=== PATIENT | male | born 1990 | race Two or more races ===

== ENCOUNTER 2016-06-11 18:02 | Emergency (ER) | payer OTHER ==
[~2016-06-11] VITALS: Ht 157.5 cm; Wt 65.8 kg
[~2016-06-11 18:02] MED LIST: HUMULOG; INSLANTI
[2016-06-11 23:00] VITALS: BP 94/53
[2016-06-11] MEDS ORDERED: KETOROLAC TROMETH 60MG/2ML VIAL IM ONE ×2 (23:00→23:15)
== END 2016-06-11 22:58 | disposition home or self-care (01) ==
LOC: ER 18:10
DX: M76.892 Other specified enthesopathies of left lower limb, excluding foot (principal); E11.42 Type 2 diabetes mellitus with diabetic polyneuropathy; G62.9 Polyneuropathy, unspecified; F17.210 Nicotine dependence, cigarettes, uncomplicated
CPT/HCPCS: 82962; 93971; 96372; 99284; J1885

== ENCOUNTER 2016-07-10 11:32 | Inpatient (IN) | payer OTHER ==
[~2016-07-10] VITALS: Ht 160 cm; Wt 60.9 kg
[~2016-07-10 11:32] MED LIST changes: +ACYC200C PO; +ARTISOL13 EACHEYE; +GAB100C PO; +IBU600T PO
[2016-07-10 12:24] LABS: Basophils # (auto) 0.1 uL; Basophils % (auto) 0.9 % (0.0-2.0); Eosinophils # (auto) 0.3 uL; Eosinophils % (auto) 4.1 % (0.0-7.0); Hemoglobin 11.2 g/dL (13.5-17.5); Lymphocytes # (auto) 1.2 uL; Lymphocytes % (auto) 15.6 % (10.0-50.0); Mean Corpuscular Hemoglobin 28.3 pg (28.0-32.0); Mean Corpuscular Hgb Conc. 33.9 g/dL (32.0-36.0); Mean Corpuscular Volume 83.6 fL (80.0-100.0); Mean Platelet Volume 8.4 fL (7.4-10.4); Monocytes # (auto) 0.5 uL; Monocytes % (auto) 7.2 % (0.0-12.0); Neutrophils # (auto) 5.4 uL; Neutrophils % (auto) 72.2 % (37.0-80.0); Platelet Count (auto) 281 10^3/uL (140-450); Red Cell Distribution Width 13.3 % (11.6-16.0); White Blood Cell 7.5 10^3/uL (4.4-10.8)
[2016-07-10 12:58] LABS: Albumin 3.5 g/dL (3.4-5.0); BUN/Creatinine Ratio 13.5; Bilirubin, Total 0.2 mg/dL (0.2-1.0); Calcium 8.8 mg/dL (8.5-10.1); Potassium 3.3 mmol/L (3.5-5.1); Total Protein 7.6 g/dL (6.4-8.2)
[2016-07-10 13:36] LABS: Urine RBC None Seen /hpf (0 - 3)
[2016-07-10 13:42] LABS: Amylase 19 U/L (25-115)
[2016-07-10] MEDS ORDERED: POTASSIUM CHL 10% (20 MEQ/15ML) ORAL SOLN PO ONE (14:00)
[2016-07-10 14:12] LABS: Urine Bilirubin Negative (Negative); Urine Blood Negative /uL (Negative); Urine Color Yellow (Yellow); Urine Ketone Negative (Negative); Urine Nitrite Negative (Negative); Urine Squamous Epithelial Cell FEW /hpf (<5); Urine Urobilinogen Normal (Negative); Urine pH 5.5 (5.0-8.0)
[2016-07-10 14:16] LABS: Urine Glucose 4+ mg/dL (Normal)
[2016-07-10] MEDS ORDERED: ONDANSETRON HCL 4 MG/2 ML VIAL IV PRN (14:30)
[2016-07-10] MEDS ORDERED: ARTIFICIAL TEARS 15ml EACHEYE PRN (14:30)
[2016-07-10] MEDS ORDERED: ACETAMINOPHEN 325 MG TAB PO PRN (14:30)
[2016-07-10] MEDS ORDERED: DEXTROSE (50%) 50ML SYRG IV PRN (14:30)
[2016-07-10] MEDS ORDERED: NITROGLYCERIN 0.4 MG SL TAB SL PRN (14:30)
[2016-07-10] MEDS ORDERED: MORPHINE SULF INJ 2 MG/ML SYRINGE 1ML IV PRN ×2 (14:30)
[2016-07-10] MEDS ORDERED: HYDROcodone-ACET 5/325MG TAB PO PRN (14:30)
[2016-07-10] MEDS ORDERED: TEMAZEPAM 15 MG CAP PO PRN (14:30)
[2016-07-10] MEDS ORDERED: ACYCLOVIR 400 MG TAB PO ONE (14:45)
[2016-07-10] MEDS ORDERED: GABAPENTIN 100 MG CAP PO ONE (14:45)
[2016-07-10] MEDS ORDERED: MULTIPLE VITAMIN TAB PO ONE (14:45)
[2016-07-10] MEDS ORDERED: IBUPROFEN 600 MG TAB PO ONE (14:45)
[2016-07-10] MEDS ORDERED: cefTRIAXone 1GM/50ML D5W 50 ML IV ONE (15:00)
[2016-07-10 15:21] LABS: INR 1.02 (0.9-1.15); Prothrombin Time 10.5 sec (9.37-12.3)
[2016-07-10 16:35] VITALS: BP 140/90
[2016-07-10] MEDS: InsuLIN REG 1unit/0.01ml Soln (100units/ml) SC SCH ×2 (17:00→22:15)
[2016-07-10] MEDS ORDERED: INFLUENZA QUAD 2016-2017 0.5 ML SYRG IM ONE (17:45)
[2016-07-10] MEDS ORDERED: PNEUMOCOCCAL VACC POLYS 25 MCG/0.5 ML VIAL IM ONE (17:45)
[2016-07-10] MEDS: ACCU-CHEK COMFORT CURVE STRIP VI SCH ×2 (17:47→22:15)
[2016-07-10 21:30] VITALS: BP 104/69
[2016-07-10] MEDS: IBUPROFEN 600 MG TAB PO SCH (22:13)
[2016-07-10] MEDS: SODIUM CHLOR 0.9% PF (SALINE LOCK) 10ML VIAL IV SCH (22:13)
[2016-07-10] MEDS: ACYCLOVIR 400 MG TAB PO SCH (22:14)
[2016-07-10] MEDS: GABAPENTIN 100 MG CAP PO SCH (22:14)
[2016-07-10] MEDS: INSULIN DETEMIR(LEVEMIR) 1unit/0.01ml Soln (100units/ml) SC SCH (22:15)
[2016-07-11] VITALS (7 sets, daily range): BP systolic 108–121; BP diastolic 68–91
[2016-07-11 06:09] LABS: Basophils # (auto) 0.1 uL; Basophils % (auto) 0.8 % (0.0-2.0); Eosinophils # (auto) 0.6 uL; Eosinophils % (auto) 6.8 % (0.0-7.0); Hematocrit 33.8 % (41.0-53.0); Hemoglobin 11.3 g/dL (13.5-17.5); Lymphocytes # (auto) 2.1 uL; Lymphocytes % (auto) 26.6 % (10.0-50.0); Mean Corpuscular Hemoglobin 28.4 pg (28.0-32.0); Mean Corpuscular Hgb Conc. 33.5 g/dL (32.0-36.0); Mean Corpuscular Volume 84.8 fL (80.0-100.0); Mean Platelet Volume 8.8 fL (7.4-10.4); Monocytes # (auto) 0.7 uL; Monocytes % (auto) 8.6 % (0.0-12.0); Neutrophils # (auto) 4.6 uL; Neutrophils % (auto) 57.2 % (37.0-80.0); Platelet Count (auto) 295 10^3/uL (140-450); Red Cell Distribution Width 13.6 % (11.6-16.0); White Blood Cell 8.1 10^3/uL (4.4-10.8)
[2016-07-11] MEDS: SODIUM CHLOR 0.9% PF (SALINE LOCK) 10ML VIAL IV SCH ×3 (06:29→22:27)
[2016-07-11 06:31] LABS: Albumin 3.1 g/dL (3.4-5.0); Calcium 8.4 mg/dL (8.5-10.1); Potassium 4.1 mmol/L (3.5-5.1)
[2016-07-11 06:33] LABS: BUN/Creatinine Ratio 14.3
[2016-07-11 06:36] LABS: Bilirubin, Total 0.3 mg/dL (0.2-1.0); Total Protein 7.1 g/dL (6.4-8.2)
[2016-07-11] MEDS: ACCU-CHEK COMFORT CURVE STRIP VI SCH ×4 (06:36→22:28)
[2016-07-11] MEDS: InsuLIN REG 1unit/0.01ml Soln (100units/ml) SC SCH ×4 (06:38→22:31)
[2016-07-11] MEDS ORDERED: cefTRIAXone 1GM/50ML D5W 50 ML IV SCH (09:00)
[2016-07-11] MEDS: MULTIPLE VITAMIN TAB PO SCH (09:23)
[2016-07-11] MEDS: IBUPROFEN 600 MG TAB PO SCH ×2 (09:24→22:28)
[2016-07-11] MEDS: GABAPENTIN 100 MG CAP PO SCH ×2 (09:24→22:28)
[2016-07-11] MEDS: ACYCLOVIR 400 MG TAB PO SCH ×2 (09:24→22:28)
[2016-07-11] MEDS: INSULIN DETEMIR(LEVEMIR) 1unit/0.01ml Soln (100units/ml) SC SCH (22:32)
[2016-07-12] MEDS: SODIUM CHLOR 0.9% PF (SALINE LOCK) 10ML VIAL IV SCH (05:23)
[2016-07-12] MEDS: ACCU-CHEK COMFORT CURVE STRIP VI SCH ×2 (05:24→12:16)
[2016-07-12] MEDS: InsuLIN REG 1unit/0.01ml Soln (100units/ml) SC SCH ×2 (05:24→12:18)
[2016-07-12 05:42] VITALS: BP 119/70
[2016-07-12 09:00] VITALS: BP 112/88
[2016-07-12] MEDS ORDERED: traMADol HCL 50 MG TAB PO PRN (09:00)
[2016-07-12] MEDS ORDERED: TRAM50TA2 PO ×2 (09:32)
[2016-07-12] MEDS: ACYCLOVIR 400 MG TAB PO SCH (09:38)
[2016-07-12] MEDS: MULTIPLE VITAMIN TAB PO SCH (09:38)
[2016-07-12] MEDS: GABAPENTIN 100 MG CAP PO SCH (09:39)
[2016-07-12 12:46] VITALS: BP 138/93
== END 2016-07-12 14:58 | disposition home or self-care (01) | DRG 460 ==
LOC: EDUNIT# 11:32 → ER 11:35 → TELE 11:36 → TELE-WESTW 16:17 → WEST WING 07-11 23:02
PROVIDERS: ADMIT Internal Medicine; ATTEND Internal Medicine
DX: N17.9 Acute kidney failure, unspecified (principal); G92 Toxic encephalopathy; E10.21 Type 1 diabetes mellitus with diabetic nephropathy; E10.40 Type 1 diabetes mellitus with diabetic neuropathy, unspecified; K86.1 Other chronic pancreatitis; N13.9 Obstructive and reflux uropathy, unspecified; E10.649 Type 1 diabetes mellitus with hypoglycemia without coma; N13.30 Unspecified hydronephrosis; K76.0 Fatty (change of) liver, not elsewhere classified; M19.90 Unspecified osteoarthritis, unspecified site; D63.8 Anemia in other chronic diseases classified elsewhere; N18.2 Chronic kidney disease, stage 2 (mild); E87.6 Hypokalemia; M25.562 Pain in left knee; E10.22 Type 1 diabetes mellitus with diabetic chronic kidney disease; F17.210 Nicotine dependence, cigarettes, uncomplicated; G89.29 Other chronic pain; Z79.4 Long term (current) use of insulin; Z81.8 Family history of other mental and behavioral disorders; Z82.3 Family history of stroke; Z82.49 Family history of ischemic heart disease and other diseases of the circulatory system; Z82.5 Family history of asthma and other chronic lower respiratory diseases; Z83.3 Family history of diabetes mellitus; Z23 Encounter for immunization
CPT/HCPCS: 36415; 51702; 70450; 74176; 76775; 80053; 81001; 82150; 82962; 83036; 83690; 85025; 85610; 87081; 87086; 87493; G0434; J0696; J1815

== ENCOUNTER 2016-09-29 22:37 | Emergency (ER) | payer OTHER ==
[~2016-09-29] VITALS: Ht 157.5 cm; Wt 61.2 kg
[~2016-09-29 22:37] MED LIST changes: -IBU600T PO; +TRAM50TA2 PO
[2016-09-29 23:47] VITALS: BP 99/62
[2016-09-30] MEDS ORDERED: KETOROLAC TROMETH 30 MG/ML 1ML VIAL IM ONE
== END 2016-09-30 00:48 | disposition home or self-care (01) ==
LOC: ER 22:40
DX: K45.8 Other specified abdominal hernia without obstruction or gangrene (principal); F17.210 Nicotine dependence, cigarettes, uncomplicated; E11.9 Type 2 diabetes mellitus without complications
CPT/HCPCS: 82962; 96372; 99283; J1885

== ENCOUNTER 2017-12-17 16:25 | Inpatient (IN) | payer OTHER ==
[~2017-12-17] VITALS: Ht 157.5 cm; Wt 56.7 kg
[~2017-12-17 16:25] MED LIST changes: +ACYC1CAP23 PO; -ACYC200C PO; -INSLANTI; +INSLANTI SC
[2017-12-17] MEDS ORDERED: cefTRIAXone W LIDOCAINE 1 GM IM IM ONE (19:15)
[2017-12-17] MEDS ORDERED: SODIUM CHLORIDE 0.9% 500 ML IV ONE (19:33)
[2017-12-17] MEDS ORDERED: CLINDAMYCIN 600MG IV 50 ML IV ONE (19:45)
[2017-12-17 20:38] LABS: Basophils # (auto) 0.1 uL; Basophils % (auto) 0.8 % (0.0-2.0); Eosinophils # (auto) 0.2 uL; Eosinophils % (auto) 1.8 % (0.0-7.0); Hematocrit 41.8 % (41.0-53.0); Hemoglobin 14.1 g/dL (13.5-17.5); Lymphocytes # (auto) 2.2 uL; Lymphocytes % (auto) 24.8 % (10.0-50.0); Mean Corpuscular Hgb Conc. 33.8 g/dL (32.0-36.0); Mean Corpuscular Volume 85.7 fL (80.0-100.0); Monocytes # (auto) 0.8 uL; Monocytes % (auto) 8.7 % (0.0-12.0); Neutrophils # (auto) 5.7 uL; Neutrophils % (auto) 63.9 % (37.0-80.0); Nucleated Red Blood Cells % 0.1 %; Platelet Count (auto) 291 10^3/uL (140-450); Red Blood Cells 4.88 10^6/uL (4.5-5.90); Red Cell Distribution Width 13.3 % (11.8-14.3); White Blood Cell 8.9 10^3/uL (4.4-10.8)
[2017-12-17 20:39] LABS: Albumin 3.8 g/dL (3.4-5.0); BUN/Creatinine Ratio 12.3; Calcium 8.8 mg/dL (8.5-10.1); Magnesium 2.3 mg/dL (1.6-2.6); Potassium 3.4 mmol/L (3.5-5.1)
[2017-12-17 20:42] LABS: Bilirubin, Total 0.7 mg/dL (0.2-1.0); Total Protein 8.3 g/dL (6.4-8.2)
[2017-12-17] MEDS ORDERED: LIDOCAINE 1% (LOCAL ANESTH.) PF 5ml SDV IJ ONE (21:30)
[2017-12-17] MEDS ORDERED: DEXTROSE (50%) 50ML SYRG IV PRN (23:00)
[2017-12-17] MEDS ORDERED: MORPHINE SULF INJ 2 MG/ML SYRINGE 1ML IV PRN (23:00)
[2017-12-17] MEDS ORDERED: POTASSIUM EFFERVESENT TAB 25 MEQ PO ONE (23:00)
[2017-12-17] MEDS ORDERED: ONDANSETRON HCL 4 MG/2 ML VIAL IV PRN (23:00)
[2017-12-17] MEDS ORDERED: HYDROcodone-ACET 5/325MG TAB PO PRN (23:00)
[2017-12-17 23:45] VITALS: BP 115/79
[2017-12-18 05:00] VITALS: BP 149/78
[2017-12-18] MEDS ORDERED: CLINDAMYCIN 600MG IV 50 ML IV SCH (06:00)
[2017-12-18 06:14] LABS: Urine Bacteria NONE SEEN /hpf (None Seen); Urine Blood Negative /uL (Negative); Urine Specific Gravity 1.022 (1.001-1.035); Urine WBC <1 /hpf (0 - 3)
[2017-12-18] MEDS: ACCU-CHEK COMFORT CURVE STRIP VI SCH ×4 (06:49→22:58)
[2017-12-18] MEDS: InsuLIN REG 1unit/0.01ml Soln (100units/ml) SC SCH ×3 (06:49→17:41)
[2017-12-18 07:12] LABS: Basophils # (auto) 0 uL; Basophils % (auto) 0.8 % (0.0-2.0); Eosinophils # (auto) 0.1 uL; Eosinophils % (auto) 2.8 % (0.0-7.0); Hematocrit 37.7 % (41.0-53.0); Hemoglobin 12.6 g/dL (13.5-17.5); Lymphocytes # (auto) 1.7 uL; Lymphocytes % (auto) 37.1 % (10.0-50.0); Mean Corpuscular Hemoglobin 28.8 pg (28.0-32.0); Mean Corpuscular Hgb Conc. 33.4 g/dL (32.0-36.0); Mean Corpuscular Volume 86.2 fL (80.0-100.0); Monocytes # (auto) 0.4 uL; Monocytes % (auto) 9.6 % (0.0-12.0); Neutrophils # (auto) 2.3 uL; Neutrophils % (auto) 49.7 % (37.0-80.0); Nucleated Red Blood Cells % 0.1 %; Platelet Count (auto) 229 10^3/uL (140-450); Red Blood Cells 4.37 10^6/uL (4.5-5.90); Red Cell Distribution Width 13.6 % (11.8-14.3); White Blood Cell 4.5 10^3/uL (4.4-10.8)
[2017-12-18 07:18] LABS: INR 0.98 (0.9-1.15); Partial Thromboplastin Time 25.4 sec (23.78-33.04); Prothrombin Time 10.5 sec (9.27-12.13)
[2017-12-18 07:27] LABS: Calcium 8.3 mg/dL (8.5-10.1); Potassium 3.7 mmol/L (3.5-5.1)
[2017-12-18 07:29] LABS: BUN/Creatinine Ratio 9.6
[2017-12-18 08:00] VITALS: BP 120/87
[2017-12-18 08:25] VITALS: BP 120/87
[2017-12-18] MEDS ORDERED: cefTRIAXone 1GM/10ml IVPUSH 10 ML IV SCH (09:00)
[2017-12-18] MEDS ORDERED: VANCOMYCIN PER PHARMACY 0 MG IV SCH (11:15)
[2017-12-18 12:55] VITALS: BP 143/111
[2017-12-18] MEDS: VANCOMYCIN 750 MG in D5W 5% 250 ML IV SCH (13:23)
[2017-12-18 16:35] VITALS: BP 144/102
[2017-12-18 22:00] VITALS: BP 101/61
[2017-12-18] MEDS ORDERED: INSULIN LANTUS (GLARGINE) 1 /0.01ml (100units/ml) SC SCH (22:00)
[2017-12-18] MEDS ORDERED: InsuLIN REG 1unit/0.01ml Soln (100units/ml) SC SCH (22:00)
[2017-12-19] MEDS: VANCOMYCIN 750 MG in D5W 5% 250 ML IV SCH (03:42)
[2017-12-19 05:37] VITALS: BP 106/72
[2017-12-19 05:52] LABS: Albumin 3.2 g/dL (3.4-5.0); Calcium 8.7 mg/dL (8.5-10.1); Potassium 3.8 mmol/L (3.5-5.1)
[2017-12-19 05:55] LABS: BUN/Creatinine Ratio 11.9; Bilirubin, Total 0.4 mg/dL (0.2-1.0); Total Protein 7.4 g/dL (6.4-8.2)
[2017-12-19] MEDS: ACCU-CHEK COMFORT CURVE STRIP VI SCH ×2 (05:58→12:15)
[2017-12-19] MEDS: InsuLIN REG 1unit/0.01ml Soln (100units/ml) SC SCH ×2 (05:59→12:30)
[2017-12-19] MEDS ORDERED: VANCOMYCIN 750 MG in D5W 5% 250 ML IV SCH (12:00)
[2017-12-19 17:06] VITALS: BP 140/97
== END 2017-12-19 19:00 | disposition home or self-care (01) | DRG 383 ==
LOC: ER 16:25 → OVERFLOW 16:26 → WEST WING 23:39
PROVIDERS: ADMIT Internal Medicine; ATTEND Internal Medicine Pulmonary Disease
PROC: 0X9J0ZZ Drainage of Right Hand, Open Approach (ICD-10-PCS; principal; 2017-12-17)
DX: L03.113 Cellulitis of right upper limb (principal); E10.65 Type 1 diabetes mellitus with hyperglycemia; Z79.4 Long term (current) use of insulin; Z83.3 Family history of diabetes mellitus; H54.7 Unspecified visual loss; Z81.8 Family history of other mental and behavioral disorders; Z82.3 Family history of stroke; Z82.49 Family history of ischemic heart disease and other diseases of the circulatory system; Z82.5 Family history of asthma and other chronic lower respiratory diseases; Z81.1 Family history of alcohol abuse and dependence; Z81.3 Family history of other psychoactive substance abuse and dependence; H10.401 Unspecified chronic conjunctivitis, right eye
CPT/HCPCS: 10060; 36415; 73130; 80048; 80053; 80202; 81001; 82962; 83036; 83735; 85025; 85610; 85652; 85730; 86141; 94761; 96365; 96366; J0696; J1815; J3490; J7060

== ENCOUNTER 2019-01-12 14:40 | Emergency (ER) | payer OTHER ==
[~2019-01-12] VITALS: Ht 157.5 cm; Wt 63.5 kg
[~2019-01-12 14:40] MED LIST changes: -TRAM50TA2 PO
[2019-01-12 16:27] VITALS: BP 130/85
[2019-01-12] MEDS ORDERED: LIDOCAINE 1% HCL (LOCAL ANESTH.) INJ 20ML MDV IJ ONE (17:00)
[2019-01-12] MEDS ORDERED: NEOMYCIN-BACITRACIN-POLYM UNITDOSE PKG TOP OINT TOP ONE (17:00)
[2019-01-12] MEDS ORDERED: cefTRIAXone SOD 1,000 MG VL IM ONE (17:45)
== END 2019-01-12 18:20 | disposition home or self-care (01) ==
LOC: ER 14:40
DX: S61.215A Laceration without foreign body of left ring finger without damage to nail, initial encounter (principal); E11.9 Type 2 diabetes mellitus without complications; W45.8XXA Other foreign body or object entering through skin, initial encounter; Y93.89 Activity, other specified; Y92.69 Other specified industrial and construction area as the place of occurrence of the external cause; Y99.8 Other external cause status
CPT/HCPCS: 12001; 96372; 99283; J0696; J2001

== ENCOUNTER 2019-01-19 10:41 | Emergency (ER) | payer OTHER ==
[~2019-01-19] VITALS: Ht 157.5 cm; Wt 68.0 kg
[2019-01-19 10:51] VITALS: BP 90/60
== END 2019-01-19 11:49 | disposition home or self-care (01) ==
LOC: ER 10:46
DX: S61.215D Laceration without foreign body of left ring finger without damage to nail, subsequent encounter (principal); E11.9 Type 2 diabetes mellitus without complications; Z79.899 Other long term (current) drug therapy; Z79.4 Long term (current) use of insulin; X58.XXXD Exposure to other specified factors, subsequent encounter

== ENCOUNTER 2020-05-09 17:23 | Emergency (ER) | payer MEDICARE, MEDICAID ==
[~2020-05-09] VITALS: Ht 160 cm; Wt 65.8 kg
[2020-05-09 18:12] VITALS: BP 136/85
== END 2020-05-10 01:40 | disposition left against medical advice (07) ==
LOC: ER 17:23
DX: U07.1 COVID-19 (principal); J18.9 Pneumonia, unspecified organism; R10.9 Unspecified abdominal pain
CPT/HCPCS: 74176

== ENCOUNTER 2023-07-03 21:42 | Emergency (ER) | payer MEDICAID, MEDICARE ==
[~2023-07-03] VITALS: Ht 172.7 cm; Wt 68.2 kg
[~2023-07-03 21:42] MED LIST changes: -ACYC1CAP23 PO; +ACYC200C22 PO
[2023-07-03 23:05] VITALS: PULSE 102; RESP 18; O2SAT 94
[2023-07-04] MEDS: MORPHINE SULFATE 4 MG/ML SYR/VIAL IV ONE (00:02)
[2023-07-04 02:02] VITALS: BP 127/71; PULSE 86; RESP 18; TEMP 98; O2SAT 97
[2023-07-04] MEDS ORDERED: IOHEXOL 350 MG/ML 100ML IJ ONE (05:59)
== END 2023-07-04 02:14 | disposition home or self-care (01) ==
LOC: EDBD 21:42 → ER 21:42
DX: S00.81XA Abrasion of other part of head, initial encounter (principal); M79.18 Myalgia, other site; R07.89 Other chest pain; M54.2 Cervicalgia; E11.9 Type 2 diabetes mellitus without complications; V43.62XA Car passenger injured in collision with other type car in traffic accident, initial encounter; Y93.89 Activity, other specified; Y92.89 Other specified places as the place of occurrence of the external cause; Y99.8 Other external cause status
CPT/HCPCS: 70450; 71260; 72040; 74177; 96374; 99285; J2270; Q9967

== ENCOUNTER 2024-12-29 19:42 | Inpatient (IN) | payer MEDICARE ==
[~2024-12-29] VITALS: Ht 160 cm; Wt 55.6 kg
[2024-12-29 20:19] LABS: Hematocrit 38.7 % (41.0-53.0); Hemoglobin 12.8 g/dL (13.5-17.5); Mean Corpuscular Hemoglobin 28.3 pg (28.0-32.0); Mean Corpuscular Volume 85.6 fL (80.0-100.0); Nucleated Red Blood Cells % 0.0 %
--- NOTE | 2024-12-29 20:23 | ED.PDOC ---
History of Present Illness(SKN HPI Comments 34 year old male w hx type 1 DM presents to the ED with a chief complaint of wound check. Patient states he went fishing about 1 week ago, got sunburned, went home, scrubbed bilateral legs "to clean off since fish are dirty", applied Iodine shortly after. The next day, patient noticed wounds on bilateral knees, LT knee worse. For the past 2 days, he has been experiencing intermittent fevers, muscle aches, BS has ranged from 200-300. Patient noticed region around wound has turned red, with mild swelling. Denies pain. Denies nausea, vomiting, diarrhea, abdominal pain, headache, dizziness, chest pain, numbness/tingling. No other symptoms or modifying factors present at this time. Chief Complaint: Wound Check Time Seen by MD: 20:10 Primary Care Provider: HARISH History of Present Illness: Medications, Allergies Allergies: Coded Allergies: NO KNOWN ALLERGIES (Unverified , 01/29/10) Home Meds Active Scripts Gabapentin (Gabapentin) 100 Mg Cap, 200 MG PO BID, #60 CAP Prov:ROBYN DOHERTY MD 06/23/16 Reported Medications Artificial Tear Solution (ARTIFICIAL TEARS) Tears Kymberly, 1 DROP EACHEYE 06/22/16 Acyclovir (Acyclovir) 200 Mg Cap, 400 MG PO BID, TAB 06/22/16 Insulin Glargine (Lantus) 100 Units/Ml Vial, 12 UNIT SC HS 01/29/10 [Humulog] No Conflict Check 01/29/10 Information Source: Patient Mode of Arrival: Ambulatory Severity: Moderate Timing: Weeks Duration: Since onset Prehospital treatment: None Location: Leg Mechanism: Preceding Wound Occurence: Outdoors Wound Type: Unknown (wound) History of: Diabetes Associated Signs and Symptoms: Redness, Swelling Past Medical History PAST MEDICAL HISTORY: DM Surgical History: Denies all surgeries Family History Family History: Reviewed,noncontributory to illness Social History Smoker: Non-Smoker Alcohol: Denies ETOH Use Drugs: Denies Drug Use Lives In: Home Constitutional: denies: chills, diaphoresis, fatigue, fever, malaise, sweats, weakness, others EENTM: denies: blurred vision, double vision, ear bleeding, ear discharge, ear drainage, ear pain, ear ringing, eye pain, eye redness, hearing loss, mouth pain, mouth swelling, nasal discharge, nose bleeding, nose congestion, nose pain, photophobia, tearing, throat pain, throat swelling, voice changes, others Respiratory: denies: cough, hemoptysis, orthopnea, SOB at rest, shortness of breath, SOB with excertion, stridor, wheezing, others Cardiovascular: denies: chest pain, dizzy spells, diaphoresis, Dyspnea on exertion, edema, irregular heart beat, left arm pain, lightheadedness, palpitations, PND, syncope, others Gastrointestinal: denies: abdomen distended, abdominal pain, blood streaked bowels, constipated, diarrhea, dysphagia, difficulty swallowing, hematemesis, melena, nausea, poor appetite, poor fluid intake, rectal bleeding, rectal pain, vomiting, others Genitourinary: denies: burning, dysuria, flank pain, frequency, hematuria, incontinence, penile discharge, penile sore, pain, testicle pain, testicle swelling, urgency, others Neurological: denies: dizziness, fainting, headache, left sided numbness, left sided weakness, numbness, paresthesia, pre-existing deficit, right sided numbness, right sided weakness, seizure, speech problems, tingling, tremors, weakness, others Musculoskeletal: denies: back pain, gout, joint pain, joint swelling, muscle pain, muscle stiffness, neck pain, others Integumetry: reports: wounds (Bilateral knees); denies: bruises, change in color, change in hair/nails, dryness, laceration, lesions, lumps, rash, others Allergic/Immunocompromised: denies: Difficulty Healing, Frequent Infections, Hives, Itching, others Hematologic/Lymphatic: denies: anemia, blood clots, easy bleeding, easy bruising, swollen glands, others Endocrine: denies: excessive hunger, excessive sweating, excessive thirst, excessive urination, flushing, intolerance to cold, intolerance to heat, unexplained weight gain, unexplained weight loss, others Psychiatric: denies: anxiety, bipolar disorder, depression, hopeless, panic disorder, schizophrenia, sleepless, suicidal, others All Other Systems: Reviewed and Negative Physical Exam General Appearance: Normal HEENT: Normal ENT Inspection, Pharynx Normal, TMs Normal Neck: Full Range of Motion, Non-Tender, Normal, Normal Inspection Respiratory: Chest Non-Tender, Lungs Clear, No Accessory Muscle Use, No Respiratory Distress, Normal Breath Sounds Cardiovascular: No Edema, No JVD, No Murmur, No Gallop, Normal Peripheral Pulses, Regular Rate/Rhythm Breast Exam: Deferred Gastrointestinal: No Organomegaly, Non Tender, No Pulsatile Mass, Normal Bowel Sounds, Soft Genitalia: Deferred Pelvic: Deferred Rectal: Deferred Extremities: No calf tenderness, Normal capillary refill, No pedal edema Musculoskeletal : Apperance: Normal Neurologic: Alert, planning official II-XII nml as Tested, No Motor Deficits, Normal Affect, Normal Mood, No Sensory Deficits Cerebellar Function: Normal Reflexes: Normal Skin: Dry, Other (Left lower extremity with evidence of approximately 5 cm ulcerated wound with surrounding erythema and mild warmth, no significant tenderness to palpation, no crepitus, no bullae. Right lower extremity also with scattered ulcers with scabbing but without warmth, no tenderness to palpation. Patient ambulating with a steady gait without assistance. No discharge.) Lymphatic: No Adenopathy Was a procedure done? Was a procedure done?: No Differential Diagnosis (INTG) Differential Diagnosis: Other (Cellulitis, abscess, necrotizing soft tissue infection, SJS, TEN) X-Ray, Labs, Meds, VS Vital Signs Date Time Temp Pulse Resp B/P (MAP) Pulse Ox O2 Delivery O2 Flow Rate FiO2 12/29/24 19:42 98.3 94 18 105/75 99 98.3 Lab Test 12/29/24 20:00 12/29/24 19:51 Range/Units White Blood Count 13.4 H 4.4-10.8 10^3/uL Red Blood Count 4.53 4.5-5.90 10^6/uL Hemoglobin 12.8 L 13.5-17.5 g/dL Hematocrit 38.7 L 41.0-53.0 % Mean Corpuscular Volume 85.6 80.0-100.0 fL Mean Corpuscular Hemoglobin 28.3 28.0-32.0 pg Mean Corpuscular Hemoglobin Concent 33.1 32.0-36.0 g/dL Red Cell Distribution Width 14.5 H 11.8-14.3 % Platelet Count 300 140-450 10^3/uL Mean Platelet Volume 7.7 6.9-10.8 fL Neutrophils (%) (Auto) 83.4 H 37.0-80.0 % Lymphocytes (%) (Auto) 8.8 L 10.0-50.0 % Monocytes (%) (Auto) 7.3 0.0-12.0 % Eosinophils (%) (Auto) 0.2 0.0-7.0 % Basophils (%) (Auto) 0.3 0.0-2.0 % Neutrophils # (Auto) 11.1 H 1.6-8.6 10 ^3/uL Lymphocytes # (Auto) 1.2 0.4-5.4 10 ^3/uL Monocytes # (Auto) 1.0 0-1.3 10 ^3/uL Eosinophils # (Auto) 0 0-0.8 10 ^3/uL Basophils # (Auto) 0 0-0.2 10 ^3/uL Nucleated Red Blood Cells 0.0 % Sodium Level 128 L 136-145 mmol/L Potassium Level 4.3 3.5-5.1 mmol/L Chloride Level 95 L 98-107 mmol/L Carbon Dioxide Level 23 20-31 mmol/L Anion Gap 10 5-15 Blood Urea Nitrogen 19 9-23 mg/dL Creatinine 1.76 H 0.700-1.30 mg/dL Glomerular Filtration Rate Calc 52 >90 mL/min BUN/Creatinine Ratio 10.8 10.0-20.0 Serum Glucose 486 *H 74-106 mg/dL Calcium Level 9.1 8.7-10.4 mg/dL Beta-Hydroxybutyric Acid Pending POC Glucose 534 *H 70-106 mg/dl X-Ray, Labs, Meds, VS Comment 34-year-old male here today with complaints of wounds to his bilateral lower extremity, left worse than right after a fresh water fishing trip. Vital signs stable, afebrile. Physical exam with evidence of ulcerated wounds with surrounding cellulitis. Doubt necrotizing soft tissue infection. Doubt abscess. Doubt DVT. Doubt fracture/dislocation. Doubt septic joint. Labs notable for hyperglycemia with point of care sugar on arrival of 534. No evidence of anion gap or acidosis. Doubt DKA/HHS. Patient was started on 30 cc/kilos of normal saline, cultures were obtained, and started on vanco/Zosyn taking note that Zosyn does cover Aeromonas sp which is a cause of fresh water bacterial cellulitis. Plan made to admit the patient for hyperglycemia due to uncontrolled diabetes and for IV antibiotic therapy for his bilateral lower extremity wounds. Time of 1ST Reevaluation: 20:40 Reevaluation 1ST: Unchanged Patient Education/Counseling: Diagnosis, Treatment, Prognosis Family Education/Counseling: No Family Present SEPSIS Sepsis Screen Date sepsis recognized/suspect: Dec 29, 2024 Time Sepsis recognized/suspect: 1941 Recent Procedure: No On Antibiotic Therapy: No Respiratory Rate >20: No Heart Rate >90: No Temp<36 C (96.8 F) or >38.3 C: No SBP <90 or MAP <65 mmHG: No New Acute Mental Status Change: No Is the patient on CPAP, BIPAP,: No Physician Orders Beta-Hydroxybutyrate (12/29/24 20:18) Sodium Chloride 0.9% (12/29/24 20:30) Vancomycin 1gm/200ml Pm (12/29/24 20:30) Piperacillin-Tazob 3.375gm (Zosyn 3.375g (12/29/24 20:30) Blood Culture (12/29/24 20:49) Lactic Acid W/ Reflex Order (12/29/24 20:49) Vital Signs Date Time Temp Pulse Resp B/P (MAP) Pulse Ox O2 Delivery O2 Flow Rate FiO2 12/29/24 19:42 98.3 94 18 105/75 99 98.3 Laboratory Tests Test 12/29/24 20:00 White Blood Count 13.4 10^3/uL (4.4-10.8) H Departure 1 Departure Time of Disposition: 21:03 Impression: Primary Impression: Cellulitis Additional Impressions: Ulcers of both lower extremities Uncontrolled diabetes mellitus with hyperglycemia Disposition: ADMITTED INPATIENT Admit to: Tele Condition: Guarded Critical Care Note Critical Care Time?: Yes (35 min-critical care time only) Stability Stability form required: No Heart Score Heart Score: Heart Score Response (Comments) Value History N/A 0 EKG N/A 0 Age N/A 0 Risk Factors N/A 0 Troponin N/A 0 Total 0 I personally scribed for RAMÓN FORD MD ([email or web address]) on 12/29/24 at 20:23. Electronically submitted by Danyelle Chu ([email or web address]). RAMÓN FORD MD Dec 29, 2024 20:23
[2024-12-29 20:24] LABS: Potassium 4.3 mmol/L (3.5-5.1)
[2024-12-29 20:25] LABS: Anion Gap 10 (5-15); Calcium 9.1 mg/dL (8.7-10.4); Carbon Dioxide 23 mmol/L (20-31); Chloride 95 mmol/L (98-107); Sodium 128 mmol/L (136-145)
[2024-12-29 20:30] LABS: BUN/Creatinine Ratio 10.8 (10.0-20.0); Blood Urea Nitrogen 19 mg/dL (9-23)
[2024-12-29] MEDS: SODIUM CHLORIDE 0.9% 1,700 ML IV ONE (20:30)
[2024-12-29 20:33] LABS: Glucose 486 mg/dL (74-106)
[2024-12-29] MEDS ORDERED: VANCOMYCIN 1GM/250ML KIT 250 ML IV ONE (21:15)
[2024-12-29] MEDS ORDERED: ACETAMINOPHEN 325 MG TAB PO PRN (21:45)
[2024-12-29 21:47] LABS: Lactic Acid w/Reflex 2.7 mmol/L (0.4-2.0)
[2024-12-29] MEDS: INSULIN LANTUS (GLARGINE) 1 /0.01ml (100units/ml) SC SCH (22:00)
[2024-12-29] MEDS ORDERED: DEXTROSE (50%) 50ML SYRG IV PRN (22:00)
[2024-12-29] MEDS: InsuLIN REG 1unit/0.01ml Soln (100units/ml) SC SCH (22:00)
[2024-12-29] MEDS: LACTATED RINGER'S 1,000 ML IV ONE (22:00)
[2024-12-29] MEDS: ACCU-CHEK COMFORT CURVE STRIP VI SCH (22:00)
--- NOTE | 2024-12-29 22:10 | DVHHPRES ---
History of Present Illness Resident Creating Document: ABDIEL BARRETO History of Present Illness This is a 34-year-old male with past medical history of type 1 diabetes mellitus who presented to the ED with chief complaint of left knee wound just above the kneecap. The patient states that he went fishing one week ago and got bilateral sun burn on bilateral knees. Patient reports that after that he went home and while taking a bath he was washing his knees with soap and incidentally peeled up the skin in the left knee. Days later, patient developed an ulcer with a crusted wound but was not causing significant pain at that time. Patient also reports wounds on right knee secondary to sunburn as well but less severe compared to the left. Patient reports that four days ago started developing fever, chills, body aches, erythema surrounding the left crusted ulcer associated with the edema and left lower extremity tightness. Initial labs beatriz wed a WBC of 13.4, BUN 19 and creatinine 1.76. Blood glucose was significantly elevated at 486. Upon my examination, there is a crusted ulcer/wound in the left lower extremity 2 cm above and laterally to the left kneecap. There is significant erythema surrounding the ulcer associated with the edema, inflammation and left lower extremity tightness. There is no significant tender ness to palpation. We will start the patient on IV fluids 1-2 L bolus, maintenance fluid, IV antibiotics. We will order a CT of the left lower extremity to rule out any abscess or muscle involvement. We will admit the patient for further assessment and management. Past Medical history: type 1 diabetes mellitus Home medications: Lantus 12 units, and Humalog 4 units before breakfast, 4 units before lunch and 10 units before dinner Surgical history: Denies Social history: Denies alcohol intake, drug intake or smoking Endocrine: Diabetes Past Surgical History: None Family History: None Smoke: No ALCOHOL: none Drugs: None Lives: with Family Domestic Violence: Neg Review of Systems Constitutional: Yes: Fever, Chills, Malaise; No: Sweats, Weakness, Other Eyes: No: Pain, Vision change, Conjunctivae inflammation, Eyelid inflammation, Other, Redness ENT: No: Ear pain, Ear discharge, Nose pain, Nose discharge, Nose congestion, Mouth pain, Mouth swelling, Throat pain, Throat swelling, Other Respiratory: No: Cough, Dry, Shortness of breath, SOB with excertion, Wheezing, Hemoptysis, Pleuritic Pain, Sputum, Wheezing, Other Cardiovascular: No: Chest Pain, Palpitations, Orthopnea, Paroxysmal Noc. Dyspnea, Edema, Lt Headedness, Other Gastrointestinal: No: Nausea, Vomiting, Abdominal Pain, Diarrhea, Constipation, Melena, Hematochezia, Other Genitourinary: No Dysuria, No Frequency, No Incontinence, No Hematuria, No Retention, No Other Musculoskeletal: leg pain; No: other, neck pain, shoulder pain, arm pain, back pain, hand pain, foot pain Skin: Other (There is a ulcer/crusted wound laterally and just above the left kneecap with a associated erythema, swelling and left lower extremity tightness); No: Rash, Lesions, Jaundice, Bruising Neurological: No: Weakness, Numbness, Incoordination, Change in speech, Confusion, Seizures, Other Allergies: Coded Allergies: NO KNOWN ALLERGIES (Unverified , 01/29/10) Medications Current Medications Medications Dose Ordered Sig/Maria De Jesus Route Start Time Stop Time Status Last Admin Dose Admin Acetaminophen 650 mg Q6HP PRN PO 12/29/24 21:45 UNV Exam Vital Signs Vital Signs Date Time Temp Pulse Resp B/P (MAP) Pulse Ox O2 Delivery O2 Flow Rate FiO2 12/29/24 19:42 98.3 94 18 105/75 99 98.3 General Appearance: Alert, Oriented X3, Cooperative, No acute distress HEENT: Atraumatic, PERRLA, EOMI, Mucous membr. moist/pink Respiratory: Clear to auscultation, Normal air movement Cardiovascular: Regular rate, Normal S1, Normal S2, No murmurs Abdominal: Normal bowel sounds, Soft, No tenderness, No hepatospenomegaly, No masses Extremities: No clubbing, No cyanosis, No edema, Normal pulses, No tenderness/swelling Skin: No rashes, No breakdown, No significant lesion Neuro: Normal gait, Normal speech, Strength at 5/5 X4 ext, Normal tone, Sensation intact, Cranial nerves 3-12 NL, Reflexes 2+ Psych/Mental Status: Mental status NL, Mood NL Labs/Xrays Labs Test 12/29/24 21:06 12/29/24 20:00 12/29/24 19:51 Range/Units Lactic Acid Level 2.7 *H 0.4-2.0 mmol/L White Blood Count 13.4 H 4.4-10.8 10^3/uL Red Blood Count 4.53 4.5-5.90 10^6/uL Hemoglobin 12.8 L 13.5-17.5 g/dL Hematocrit 38.7 L 41.0-53.0 % Mean Corpuscular Volume 85.6 80.0-100.0 fL Mean Corpuscular Hemoglobin 28.3 28.0-32.0 pg Mean Corpuscular Hemoglobin Concent 33.1 32.0-36.0 g/dL Red Cell Distribution Width 14.5 H 11.8-14.3 % Platelet Count 300 140-450 10^3/uL Mean Platelet Volume 7.7 6.9-10.8 fL Neutrophils (%) (Auto) 83.4 H 37.0-80.0 % Lymphocytes (%) (Auto) 8.8 L 10.0-50.0 % Monocytes (%) (Auto) 7.3 0.0-12.0 % Eosinophils (%) (Auto) 0.2 0.0-7.0 % Basophils (%) (Auto) 0.3 0.0-2.0 % Neutrophils # (Auto) 11.1 H 1.6-8.6 10 ^3/uL Lymphocytes # (Auto) 1.2 0.4-5.4 10 ^3/uL Monocytes # (Auto) 1.0 0-1.3 10 ^3/uL Eosinophils # (Auto) 0 0-0.8 10 ^3/uL Basophils # (Auto) 0 0-0.2 10 ^3/uL Nucleated Red Blood Cells 0.0 % Sodium Level 128 L 136-145 mmol/L Potassium Level 4.3 3.5-5.1 mmol/L Chloride Level 95 L 98-107 mmol/L Carbon Dioxide Level 23 20-31 mmol/L Anion Gap 10 5-15 Blood Urea Nitrogen 19 9-23 mg/dL Creatinine 1.76 H 0.700-1.30 mg/dL Glomerular Filtration Rate Calc 52 >90 mL/min BUN/Creatinine Ratio 10.8 10.0-20.0 Serum Glucose 486 *H 74-106 mg/dL Calcium Level 9.1 8.7-10.4 mg/dL POC Glucose 534 *H 70-106 mg/dl SEPSIS Sepsis Screen Date sepsis recognized/suspect: Dec 29, 2024 Time Sepsis recognized/suspect: 1941 Recent Procedure: No On Antibiotic Therapy: No Respiratory Rate >20: No Heart Rate >90: No Temp<36 C (96.8 F) or >38.3 C: No SBP <90 or MAP <65 mmHG: No New Acute Mental Status Change: No Is the patient on CPAP, BIPAP,: No Physician Orders Beta-Hydroxybutyrate (12/29/24 20:18) Sodium Chloride 0.9% (12/29/24 20:30) Piperacillin-Tazob 3.375gm (Zosyn 3.375g (12/29/24 21:15) Blood Culture (12/29/24 20:49) Vancomycin 1gm/250ml Kit (12/29/24 22:15) Admit (12/29/24 21:45) Code Status (12/29/24 21:45) Vital Signs .PER UNIT PROTOCOL (12/29/24 21:45) Review Orders With Adm.Md (12/29/24 21:45) [facility]Diabetes (12/30/24 Breakfast) Acetaminophen Tablet (Tylenol Tablet) (12/29/24 21:45) Notify Md Of Changes From Base (12/29/24 21:45) Advance Directive (12/29/24 21:45) Urinalysis (12/29/24 21:45) Complete Blood Count (12/30/24 04:00) Lipid Panel (12/29/24 21:45) Patient Condition (12/29/24 21:45) Allergies (12/29/24 21:45) Drug Screen (12/29/24 21:45) Hemoglobin A1c (12/29/24 21:45) Left Lower Extremity W/O Con (12/29/24 21:48) Comprehensive Metabolic Panel (12/30/24 04:00) Sodium Chloride 0.9% (12/29/24 23:00) Vancomycin Per Pharmacy (12/30/24 10:00) Cefepime 2gm/50ml Ns (Maxipime 2gm/50ml) (12/30/24 08:00) Insulin Lantus (Glargine) (Lantus) (12/29/24 22:00) Glucose Blood (Accu-Chek Comfort Curve T (12/29/24 22:00) Insulin R (Human) (Insulin R) (12/29/24 22:00) Insulin R (Human) (Insulin R) (12/30/24 07:00) Dextrose 50% Syringe (12/29/24 22:00) Vital Signs Date Time Temp Pulse Resp B/P (MAP) Pulse Ox O2 Delivery O2 Flow Rate FiO2 12/29/24 19:42 98.3 94 18 105/75 99 98.3 Laboratory Tests Test 12/29/24 20:00 12/29/24 21:06 White Blood Count 13.4 10^3/uL (4.4-10.8) H Lactic Acid Level 2.7 mmol/L (0.4-2.0) *H Assessment/Plan Assessment/Plan Assessment/plan Left lower extremity cellulitis above and laterally to the left kneecap Left lower extremity diabetic wound Sepsis likely due to above Uncontrolled type 1 diabetes mellitus with severe hyperglycemia CALEB likely due to vasomotor nephropathy Plan -fluid resuscitation with IV lactated ringer 1 L bolus, maintenance fluid at 100 cc/hour afterwards -start IV vancomycin and IV cefepime -start Lantus 15 units daily -start moderate sliding scale insulin -monitor and control blood glucose in the range of 140-180 -ordered CT of the left lower extremity to rule out deep tissue involvement -monitor electrolytes closely -no anticoagulation prophylaxis needed at this time Goals of care discussed with the patient at bedside, full code Plan discussed with Dr. Shin Plan discussed with: Patient My Orders Orders - ABDIEL BARRETO RESIDENT Procedure Category Date Status Time Admit ADMIT 12/29/24 Transmitted 21:45 Code Status CODE 12/29/24 Transmitted 21:45 Vital Signs LELIA 12/29/24 In Process 21:45 Review Orders With LELIA 12/29/24 In Process Adm. 21:45 Consistent DIET 12/30/24 Transmitted Carb(Ccho)Diabetes Breakfast Acetaminophen Tablet PHA 12/29/24 Logged (Tylenol Tablet) 21:45 Notify Of Changes LELIA 12/29/24 In Process From Base 21:45 Advance Directive LELIA 12/29/24 In Process 21:45 Urinalysis LAB 12/29/24 Logged 21:45 Complete Blood Count LAB 12/30/24 Verified 04:00 Lipid Panel LAB 12/29/24 In Process 21:45 Patient Condition ORDERS 12/29/24 Transmitted 21:45 Allergies LELIA 12/29/24 In Process 21:45 Drug Screen LAB 12/29/24 Logged 21:45 Hemoglobin A1c LAB 12/29/24 In Process 21:[address] 12/29/24 Logged W/O Con 21:48 Comprehensive LAB 12/30/24 Verified Metabolic Panel 04:00 Sodium Chloride 0.9% PHA 12/29/24 Logged 23:00 Vancomycin Per PHA 12/30/24 Logged Pharmacy 10:00 Cefepime 2gm/50ml Ns PHA 12/30/24 Logged (Maxipime 2gm/50ml) 08:00 Insulin Lantus PHA 12/29/24 Logged (Glargine) (Lantus) 22:00 Glucose Blood PHA 12/29/24 Logged (Accu-Chek Comfort 22:00 Insulin R (Human) PHA 12/29/24 Logged (Insulin R) 22:00 Insulin R (Human) PHA 12/30/24 Logged (Insulin R) 07:00 Dextrose 50% Syringe PHA 12/29/24 Logged 22:00 Date of Service: Dec 29, 2024 Billing Provider: MYKE SHIN MD Common Visit Codes: 62314-[id number] INP/OBS CARE (HIGH) Secondary Visit Codes: [id number] CARE PLAN 30 MINUTES ABDIEL BARRETO RESIDENT Dec 29, 2024 22:09
[2024-12-29 22:18] LABS: Triglycerides 93 mg/dL (< 150)
[2024-12-29 22:20] LABS: Cholesterol 106 mg/dL (< 200); HDL Cholesterol 44 mg/dL (40-59)
--- NOTE | 2024-12-29 22:42 | DVH ---
INDICATION: R/O ABSCESS OR MUSCLE INVOLVEMENT (CELLULITIS LT LOWER EXT) COMPARISON: None TECHNIQUE: CT of the right was performed without contrast. Volume transverse images were obtained and reconstructed in multiple planes using bone and soft tissue algorithms. CONTRAST: None Radiation Dose Information: CT Dose: CTDI volume is 7.75 mGy. Dose-length product is 2.47 mGy*cm FINDINGS: The alignment is normal. Narrowing of the medial compartment of the left knee There is no fracture, dislocation, or focal osseous lesions. Narrowing of the patellofemoral joint. Subcutaneous edema noted anterolaterally on the left lower extremity, no drainable fluid collection IMPRESSION: 1. Narrowing of the medial compartment of the left knee as well as patellofemoral joint consistent wi th arthritic changes. 2. Subcutaneous edema anterior laterally in the left lower extremity with no drainable fluid collecti ons. If draining fluid is of clinical focus recommend ultrasound in the area of the patella. 3. Infection is a clinical concern consider MRI for excluding osteomyelitis. All CT scans at this medical facility are performed using dose modulation techniques as appropriate t o a performed exam including the following: Automated exposure control was utilized; adjustment of th e MA and/or KV according to patient size; and use of iterative reconstruction technique.
[2024-12-30] MEDS: SODIUM CHLORIDE 0.9% 1,000 ML IV ONE (01:54)
[2024-12-30] MEDS: VANCOMYCIN 1GM/250ML KIT 250 ML IV ONE (01:55)
[2024-12-30] MEDS: PIPERACILLIN-TAZOB 3.375GM 100 ML IV ONE (03:36)
[2024-12-30 03:46] VITALS: PULSE 85; RESP 17; O2SAT 97
[2024-12-30 03:55] LABS: Hematocrit 34.1 % (41.0-53.0); Hemoglobin 11.7 g/dL (13.5-17.5); Mean Corpuscular Hemoglobin 28.6 pg (28.0-32.0); Mean Corpuscular Volume 83.7 fL (80.0-100.0); Nucleated Red Blood Cells % 0.0 %
[2024-12-30 04:03] LABS: Alanine Aminotransferase 23 U/L (7-40); Anion Gap 8 (5-15); BUN/Creatinine Ratio 15.5 (10.0-20.0); Blood Urea Nitrogen 17 mg/dL (9-23); Carbon Dioxide 24 mmol/L (20-31); Chloride 101 mmol/L (98-107); Potassium 3.7 mmol/L (3.5-5.1); Total Protein 6.8 g/dL (5.7-8.2)
[2024-12-30 04:04] LABS: Albumin 3.9 g/dL (3.2-4.8); Bilirubin, Total 0.4 mg/dL (0.2-1.0)
[2024-12-30 04:06] LABS: Alkaline Phosphatase 132 U/L (46-116); Calcium 8.6 mg/dL (8.7-10.4); Glucose 187 mg/dL (74-106); Sodium 133 mmol/L (136-145)
[2024-12-30] MEDS: InsuLIN REG 1unit/0.01ml Soln (100units/ml) SC SCH (06:33)
[2024-12-30 07:59] VITALS: PULSE 95; RESP 15; O2SAT 98
[2024-12-30 09:45] VITALS: BP_SYST 137; PULSE 106; RESP 18; TEMP 100.2; O2SAT 98
[2024-12-30] MEDS: VANCOMYCIN PER PHARMACY 0 MG IV SCH (10:00)
[2024-12-30 10:12] LABS: Urine Protein, UAD TRACE (Negative)
[2024-12-30 10:30] LABS: Cannabinoid Screen, Urine Pos (NEGATIVE)
[2024-12-30] MEDS: CEFEPIME 2GM/50ML NS 50 ML IV SCH (10:35)
[2024-12-30 10:36] LABS: Amphetamine Screen, Urine Neg (NEGATIVE); Barbiturate Scree,Urine Neg (NEGATIVE); Benzodiazephine Screen, Urine Neg (NEGATIVE); Cocaine Screen, Urine Neg (NEGATIVE); Opiate Scree,Urine Neg (NEGATIVE); Phencyclidine Screen, Urine Neg (NEGATIVE)
[2024-12-30] MEDS ORDERED: INSU100I70 SC (11:33)
[2024-12-30 13:03] VITALS: BP 131/87; PULSE 100; RESP 16; TEMP 99; O2SAT 98
[2024-12-30 16:00] VITALS: BP 142/91; PULSE 105; RESP 16; TEMP 100.8; O2SAT 98
[2024-12-30] MEDS: INSULIN LISPRO (HUMAN) 100 UNITS/ML ML SC SCH ×2 (17:00→18:52)
--- NOTE | 2024-12-30 19:42 | DVHPNRES ---
Progress Note Date Seen: Dec 30, 2024 Resident Creating Document: SHANTANU HERNANDEZ RESIDENT Medical Necessity Reason Pt with a Central, PICC or Fol: No Subjective Review of Systems With past medical history of type 1 diabetes mellitus presented with symptoms of left knee edema and ulcer. Patient states he went fishing in [place] 1 [place], go to son brought in bilateral knees. He sees the skin peeled off while scrubbing in the shower. Few days later he had fever with associated chills and body pain. PMHx:type 1 diabetes mellitus Family history: Insignificant Social history: Denies smoking alcohol recreational drugs Home medication: Insulin Allergic history: None General: Patient complains of chills patient denies fever, fatigue, weaknes, sweating, any recent changes in appetite and weight HEENT: No headaches, visiual changes, hearing loss, tinnitus, nasal congestion and discharge, and sore throat. Cardiovascular: Denies chest pain, palpitations, dyspnea on exertion, orthopnea, or claudication. Respiratory: No cough, and wheezing. Gastrointestinal: Denies nausea, vomiting, dysphagia, odynophagia, heartburn, abdominal pain, flatulence, bloating, diarrhea, constipation, change in stool, or blood in stool. Genitourinary: No dysuria, hematuria, discharge, frequency, urgency, nocturia, incontinence, and urinary retention. Endocrine: No heat or cold intolerance, polydipsia, polyuria, and polyphagia. Neurological: No dizziness, extremity weakness and numbness, tremors, gait disturbance, seizures, and memory impairment. Psychiatric: Denies depression, anxiety,or insomnia. Musculoskeletal: Patient denies pain in the site of ulcer or knee joint Denies neck pain, stiffness and swelling, back pain, muscle weakness, stiffness, swelling, or limited range of motion. Skin: No rashes, itching, skin lesion, changes in hair, nail, skin texture and breast. Hematologic/Lymphatic: Denies easy bruising, bleeding tendencies, or lymph node enlargement. Objective vital signs Vital Sign Date Time Temp Pulse Resp B/P (MAP) Pulse Ox O2 Delivery O2 Flow Rate FiO2 12/30/24 16:00 100.8 105 16 142/91 (108) 98 100.8 12/30/24 09:44 Room Air* 0 21 medications Current Medications Medications Dose Ordered Sig/Maria De Jesus Route Start Time Stop Time Status Last Admin Dose Admin Acetaminophen 650 mg Q6HP PRN PO 12/29/24 21:45 Vancomycin HCl 0 ml @ 0 mls/hr DAILY IV 12/30/24 10:00 Cefepime HCl 50 ml @ 12.5 mls/hr Q12HR IV 12/30/24 10:00 12/30/24 10:35 12.5 MLS/HR Insulin Glargine 15 units DAILY@1000 SC 12/29/24 22:00 12/30/24 10:42 15 UNITS Diagnostic Test (Pha) 1 strip ACHS 12/29/24 22:00 12/30/24 17:00 1 STRIP Dextrose 50 ml UD PRN IV 12/29/24 22:00 Insulin Human Lispro AC SC 12/30/24 17:00 12/30/24 18:52 4 UNITS Insulin Human Lispro 4 units AC SC 12/30/24 17:00 Examination General Appearance: Alert, Oriented X3, Cooperative, No acute distress HEENT: Atraumatic, PERRLA, EOMI, Mucous membrane moist/pink Respiratory: Clear to auscultation, Normal air movement Cardiovascular: Regular rate, Normal S1, Normal S2, No murmurs, no chest wall tenderness Abdominal: Normal bowel sounds, Soft, No tenderness, No hepatospenomegaly, No masses Extremities: Crusted ulcers with surrounding erythema in bilateral knees, no tenderness, distal pulses palpated Skin: No rashes, No breakdown, No significant lesion Neuro: Normal gait, Normal speech, Strength at 5/5 X4 ext, Normal tone, Sensation intact, Cranial nerves 3-12 NL, Reflexes 2+ Psych/Mental Status: Mental status NL, Mood NL laboratory and microbiology Laboratory Tests 12/30/24 03:24 Test 12/30/24 03:24 Range/Units Serum Glucose 187 #H 74-106 mg/dL Microbiology Date/Time Source Procedure Growth Status 12/29/24 21:06 Blood Blood Culture - Preliminary Resulted Problem List/Assessment/Plan Problem List/Assessment/Plan Cellulitis Gangrenous ulcer Possible osteomyelitis CT lower extremity showed subcutaneous edema with no fluid collections Patient on vancomycin Ancef Send for blood and wound culture Wound consult Surgery consultation given Plan discussed with: Patient My Orders My Orders Orders - SHANTANU HERNANDEZ Procedure Category Date Status Time Wound Culture W/ Gs TRINA 12/30/24 In Process 08:27 Hepatitis B Surface LAB 12/30/24 In Process Antigen 11:31 Hepatitis C Antibody LAB 12/30/24 In Process 11:31 * Surgical Consult CONS 12/30/24 Transmitted Date of Service: Dec 30, 2024 Billing Provider: RADHA PUENTES MD Common Visit Codes: [id number] INP/OBS CARE(HIGH) SHANTANU HERNANDEZ RESIDENT Dec 30, 2024 19:42 RADHA PUENTES MD Dec 31, 2024 23:19
[2024-12-30] MEDS ORDERED: INSULIN LISPRO (HUMAN) 100 UNITS/ML ML SC SCH (19:45)
[2024-12-30 21:00] VITALS: BP 120/84; PULSE 100; RESP 18; TEMP 100.2; O2SAT 98
[2024-12-30] MEDS: INSULIN LANTUS (GLARGINE) 1 /0.01ml (100units/ml) SC ONE (23:25)
[2024-12-30] MEDS: INSULIN LISPRO (HUMAN) 100 UNITS/ML ML SC ONE (23:29)
[2024-12-31] VITALS (7 sets, daily range): BP systolic 98–123; BP diastolic 68–91; PULSE 85–91; RESP 16–18; TEMP 98.2–100.4; O2SAT 98–100
[2024-12-31 07:07] LABS: Hematocrit 31.5 % (41.0-53.0); Hemoglobin 10.8 g/dL (13.5-17.5); Mean Corpuscular Hemoglobin 28.8 pg (28.0-32.0); Mean Corpuscular Volume 83.7 fL (80.0-100.0); Nucleated Red Blood Cells % 0.0 %
[2024-12-31] MEDS: INSULIN LANTUS (GLARGINE) 1 /0.01ml (100units/ml) SC SCH (10:02)
[2024-12-31 10:45] LABS: Hepatitis B Surface Antigen Negative (Negative); Hepatitis C Antibody Negative (Negative)
[2024-12-31] MEDS ORDERED: VANCOMYCIN 1GM/250ML KIT 250 ML IV ONE (12:00)
[2024-12-31] MEDS: VANCOMYCIN 1GM/250ML KIT 250 ML IV SCH (15:42)
--- NOTE | 2024-12-31 15:50 | DVHPNRES ---
Progress Note Date Seen: Dec 31, 2024 Resident Creating Document: SHANTANU HERNANDEZ Medical Necessity Reason Pt with a Central, PICC or Fol: No Medical Necessity Reason Patient seen at bedside in the morning. Patient feels symptomatically better. On IV vancomycin and cefepime. Surgery consult pending. Objective vital signs Vital Sign Date Time Temp Pulse Resp B/P (MAP) Pulse Ox O2 Delivery O2 Flow Rate FiO2 12/31/24 13:12 98.5 88 17 123/80 (94) 98 98.5 12/30/24 20:00 Room Air* 0 21 Total Intake and Output 12/30/24 12/30/24 12/31/24 15:00 23:00 07:00 Intake Total 0 ml 700 ml Balance 0 ml 700 ml medications Current Medications Medications Dose Ordered Sig/Maria De Jesus Route Start Time Stop Time Status Last Admin Dose Admin Acetaminophen 650 mg Q6HP PRN PO 12/29/24 21:45 Vancomycin HCl 0 ml @ 0 mls/hr DAILY IV 12/30/24 10:00 Cefepime HCl 50 ml @ 12.5 mls/hr Q12HR IV 12/30/24 10:00 12/31/24 09:51 12.5 MLS/HR Diagnostic Test (Pha) 1 strip ACHS 12/29/24 22:00 12/31/24 11:34 1 STRIP Dextrose 50 ml UD PRN IV 12/29/24 22:00 Insulin Human Lispro AC SC 12/30/24 17:00 12/31/24 11:38 4 UNITS Insulin Glargine 20 units DAILY@1000 SC 12/31/24 10:00 12/31/24 10:02 20 UNITS Vancomycin HCl 250 ml @ 250 mls/hr Q12H IV 12/31/24 15:00 12/31/24 15:42 250 MLS/HR Examination General Appearance: Alert, Oriented X3, Cooperative, No acute distress HEENT: Atraumatic, PERRLA, EOMI, Mucous membrane moist/pink Respiratory: Clear to auscultation, Normal air movement Cardiovascular: Regular rate, Normal S1, Normal S2, No murmurs, no chest wall tenderness Abdominal: Normal bowel sounds, Soft, No tenderness, No hepatospenomegaly, No masses Extremities: Crusted ulcers with surrounding erythema in bilateral knees, no tenderness, distal pulses palpated Skin: No rashes, No breakdown, No significant lesion Neuro: Normal gait, Normal speech, Strength at 5/5 X4 ext, Normal tone, Sensation intact, Cranial nerves 3-12 NL, Reflexes 2+ Psych/Mental Status: Mental status NL, Mood NL laboratory and microbiology Laboratory Tests 12/31/24 06:03 12/30/24 03:24 Test 12/30/24 03:24 Range/Units Serum Glucose 187 #H 74-106 mg/dL Microbiology Date/Time Source Procedure Growth Status 12/30/24 08:53 Knee Gram Stain - Final Resulted 12/30/24 08:53 Knee Wound Culture - Preliminary Resulted 12/29/24 21:06 Blood Blood Culture - Preliminary Resulted Problem List/Assessment/Plan Problem List/Assessment/Plan Cellulitis Gangrenous ulcer Possible osteomyelitis CT lower extremity showed subcutaneous edema with no fluid collections Patient on vancomycin Send for blood and wound culture Wound consult Surgery consultation given Plan discussed with: Patient My Orders My Orders Orders - SHANTANU HERNANDEZ Procedure Category Date Status Time Blood Glucose LELIA 12/31/24 In Process Assessment 06:30 Complete Blood Count LAB 01/01/25 Verified 04:00 Comprehensive LAB 01/01/25 Verified Metabolic Panel 04:00 Date of Service: Dec 31, 2024 Billing Provider: RADHA PUENTES MD Common Visit Codes: [id number] INP/OBS CARE(HIGH) SHANTANU HERNANDEZ Dec 31, 2024 15:48 RADHA PUENTES MD Dec 31, 2024 22:28
[2025-01-01] VITALS (8 sets, daily range): BP systolic 102–152; BP diastolic 70–84; PULSE 70–87; RESP 15–17; TEMP 97.7–99.4; O2SAT 97–100
[2025-01-01 07:29] LABS: Hematocrit 31.0 % (41.0-53.0); Hemoglobin 10.3 g/dL (13.5-17.5); Mean Corpuscular Hemoglobin 28.3 pg (28.0-32.0); Mean Corpuscular Volume 84.9 fL (80.0-100.0); Nucleated Red Blood Cells % 0.0 %
[2025-01-01 08:05] LABS: Alanine Aminotransferase 17 U/L (7-40); Albumin 3.5 g/dL (3.2-4.8); Alkaline Phosphatase 110 U/L (46-116); Anion Gap 9 (5-15); BUN/Creatinine Ratio 9.0 (10.0-20.0); Blood Urea Nitrogen 9 mg/dL (9-23); Carbon Dioxide 25 mmol/L (20-31); Chloride 101 mmol/L (98-107); Potassium 4.1 mmol/L (3.5-5.1); Total Protein 6.3 g/dL (5.7-8.2)
[2025-01-01 08:06] LABS: Bilirubin, Total 0.3 mg/dL (0.2-1.0); Calcium 8.4 mg/dL (8.7-10.4); Glucose 299 mg/dL (74-106); Sodium 135 mmol/L (136-145)
[2025-01-01] MEDS: INSULIN LANTUS (GLARGINE) 1 /0.01ml (100units/ml) SC SCH (10:45)
--- NOTE | 2025-01-01 19:06 | DVHPNRES ---
Progress Note Date Seen: Jan 01, 2025 Resident Creating Document: SHANTANU HERNANDEZ Medical Necessity Reason Pt with a Central, PICC or Fol: No Subjective Review of Systems Patient is symptomatically better. On IV antibiotics. No new complaints. Initial Wound culture grew Staphylococcus species. Objective vital signs Vital Sign Date Time Temp Pulse Resp B/P (MAP) Pulse Ox O2 Delivery O2 Flow Rate FiO2 01/01/25 17:00 98.4 85 16 113/79 (90) 100 98.4 01/01/25 07:30 Room Air* 0 21 Total Intake and Output 12/31/24 12/31/24 01/01/25 15:00 23:00 07:00 Intake Total 50 ml 700 ml 400 ml Balance 50 ml 700 ml 400 ml medications Current Medications Medications Dose Ordered Sig/Maria De Jesus Route Start Time Stop Time Status Last Admin Dose Admin Acetaminophen 650 mg Q6HP PRN PO 12/29/24 21:45 Vancomycin HCl 0 ml @ 0 mls/hr DAILY IV 12/30/24 10:00 Cefepime HCl 50 ml @ 12.5 mls/hr Q12HR IV 12/30/24 10:00 01/01/25 10:39 12.5 MLS/HR Diagnostic Test (Pha) 1 strip ACHS 12/29/24 22:00 01/01/25 18:02 1 STRIP Dextrose 50 ml UD PRN IV 12/29/24 22:00 Insulin Human Lispro AC SC 12/30/24 17:00 01/01/25 18:03 3 UNITS Vancomycin HCl 250 ml @ 250 mls/hr Q12H IV 12/31/24 15:00 01/01/25 15:00 250 MLS/HR Insulin Glargine 30 units DAILY@1000 SC 01/01/25 10:00 01/01/25 10:45 30 UNITS Examination General Appearance: Alert, Oriented X3, Cooperative, No acute distress HEENT: Atraumatic, PERRLA, EOMI, Mucous membrane moist/pink Respiratory: Clear to auscultation, Normal air movement Cardiovascular: Regular rate, Normal S1, Normal S2, No murmurs, no chest wall tenderness Abdominal: Normal bowel sounds, Soft, No tenderness, No hepatospenomegaly, No masses Extremities: Crusted ulcers with surrounding erythema in bilateral knees, no tenderness, distal pulses palpated Skin: No rashes, No breakdown, No significant lesion Neuro: Normal gait, Normal speech, Strength at 5/5 X4 ext, Normal tone, Sensation intact, Cranial nerves 3-12 NL, Reflexes 2+ Psych/Mental Status: Mental status NL, Mood NL laboratory and microbiology Laboratory Tests 01/01/25 05:50 Test 01/01/25 05:50 Range/Units Serum Glucose 299 #H 74-106 mg/dL Microbiology Date/Time Source Procedure Growth Status 12/30/24 08:53 Knee Gram Stain - Final Complete 12/30/24 08:53 Wound Culture - Final Staphylococcus aureus Streptococcus Group B Complete 12/29/24 21:06 Blood Blood Culture - Final Staphylococcus aureus Complete Problem List/Assessment/Plan Problem List/Assessment/Plan Cellulitis Gangrenous ulcer Possible osteomyelitis CT lower extremity showed subcutaneous edema with no fluid collections Patient on vancomycin Send for blood and wound culture Wound consult Surgery consultation given Plan discussed with: Patient My Orders My Orders Orders - SHANTANU HERNANDEZ RESIDENT Procedure Category Date Status Time Wound Culture W/ Gs TRINA 01/01/25 In Process 06:26 Wound Culture W/ Gs TRINA 01/02/25 Uncollected 08:00 Dietary Evaluation Review Comments: Nutrition recommendation 1[facility] 2) Joshua 1 pk BID 3) Refer Emergency Medical Services Coordinator for diabetes education Expected Outcomes/Goals: Wound to improve Fu 3-5 days SHANTANU HERNANDEZ RESIDENT Jan 01, 2025 19:06
[2025-01-02] VITALS (8 sets, daily range): BP systolic 96–130; BP diastolic 52–83; PULSE 71–80; RESP 16–18; TEMP 97.6–99.4; O2SAT 97–100
[2025-01-02 09:07] LABS: Chloride 101 mmol/L (98-107); Potassium 4.1 mmol/L (3.5-5.1); Sodium 137 mmol/L (136-145)
[2025-01-02 09:08] LABS: Anion Gap 8 (5-15); Carbon Dioxide 28 mmol/L (20-31)
[2025-01-02 09:09] LABS: Calcium 8.7 mg/dL (8.7-10.4)
[2025-01-02 09:16] LABS: BUN/Creatinine Ratio 12.2 (10.0-20.0); Blood Urea Nitrogen 12 mg/dL (9-23); Glucose 168 mg/dL (74-106)
--- NOTE | 2025-01-02 11:21 | DVHPNRES ---
Progress Note Date Seen: Jan 02, 2025 Resident Creating Document: SHANTANU HERNANDEZ RESIDENT Medical Necessity Reason Pt with a Central, PICC or Fol: No Subjective Review of Systems Patient seen at bedside. Blood culture grew staph aureus. Wound culture grew staph and strep group B. ordered echo to rule out infective endocarditis. EKG daily to rule out intracardiac abscess. Objective vital signs Vital Sign Date Time Temp Pulse Resp B/P (MAP) Pulse Ox O2 Delivery O2 Flow Rate FiO2 01/02/25 08:40 98.0 71 16 96/65 (75) 99 98.0 01/01/25 20:00 Room Air* 0 21 Total Intake and Output 01/01/25 01/01/25 01/02/25 15:00 23:00 07:00 Intake Total 50 ml 975 ml 675 ml Balance 50 ml 975 ml 675 ml medications Current Medications Medications Dose Ordered Sig/Maria De Jesus Route Start Time Stop Time Status Last Admin Dose Admin Acetaminophen 650 mg Q6HP PRN PO 12/29/24 21:45 Cefepime HCl 50 ml @ 12.5 mls/hr Q12HR IV 12/30/24 10:00 01/02/25 10:46 12.5 MLS/HR Diagnostic Test (Pha) 1 strip ACHS 12/29/24 22:00 01/02/25 06:31 1 STRIP Dextrose 50 ml UD PRN IV 12/29/24 22:00 Insulin Human Lispro AC SC 12/30/24 17:00 01/02/25 06:31 2 UNITS Insulin Glargine 30 units DAILY@1000 SC 01/01/25 10:00 01/02/25 10:44 30 UNITS Examination General Appearance: Alert, Oriented X3, Cooperative, No acute distress HEENT: Atraumatic, PERRLA, EOMI, Mucous membrane moist/pink Respiratory: Clear to auscultation, Normal air movement Cardiovascular: Regular rate, Normal S1, Normal S2, No murmurs, no chest wall tenderness Abdominal: Normal bowel sounds, Soft, No tenderness, No hepatospenomegaly, No masses Extremities: Crusted ulcers with surrounding erythema in bilateral knees, no tenderness, distal pulses palpated Skin: No rashes, No breakdown, No significant lesion Neuro: Normal gait, Normal speech, Strength at 5/5 X4 ext, Normal tone, Sensation intact, Cranial nerves 3-12 NL, Reflexes 2+ Psych/Mental Status: Mental status NL, Mood NL laboratory and microbiology Laboratory Tests 01/02/25 06:39 01/01/25 05:50 Test 01/02/25 06:39 Range/Units Serum Glucose 168 #H 74-106 mg/dL Microbiology Date/Time Source Procedure Growth Status 01/01/25 07:23 Knee Gram Stain Pending Resulted 01/01/25 07:23 Knee Wound Culture - Preliminary Resulted 12/29/24 21:06 Blood Blood Culture - Final Staphylococcus aureus Complete Problem List/Assessment/Plan Problem List/Assessment/Plan Cellulitis Gangrenous ulcer Ruled out osteomyelitis CT lower extremity showed subcutaneous edema with no fluid collections Patient on vancomycin and cefepime Bacteremia Blood culture grew Staphylococcus aureus Wound culture grew Staphylococcus and group B streptococci Wound consult Type 1 diabetes mellitus Normocytic anemia Plan discussed with: Patient My Orders My Orders Orders - SHANTANU HERNANDEZ RESIDENT Procedure Category Date Status Time Wound Culture W/ Gs TRINA 01/02/25 Uncollected 08:00 Dietary Evaluation Review Comments: Nutrition recommendation 1) CCHO 60gm diet 2) Joshua 1 pk BID 3) Refer [employer] [facility] [employer] [employer] for diabetes education Expected Outcomes/Goals: Wound to improve Fu 3-5 days SHANTANU HERNANDEZ RESIDENT Jan 02, 2025 11:17
--- NOTE | 2025-01-02 13:22 | DVHSR ---
APPROVED REPORT EXAM: Two-dimensional and M-mode echocardiogram with Doppler and color Doppler. Blood Pressure: 100/63 mmHg INDICATION r/o structural disease RISK FACTORS Height: 5'3", Weight: 127 DIMENSIONS LVDd4.4 (3.8-5.7cm)LA (2D)3.4 (1.9-4.0cm)Aortic Root3.0 (2.0-3.7cm) LVDs3.2 (2.5-4.0cm)LA (MM) (1.9-4.0cm)Aortic Cusp Exc1.7 (1.5-2.0cm) EF (%) 53.0 (55-70%)Rt. Atrium3.7 (1.9-4.0cm)Asc. Aorta2.9 cm IVSd0.7 (0.7-1.1cm)RV (D)3.6 (1.8-2.4cm) PWd0.9 (0.7-1.1cm) Mitral Valve MitralMitral Stenosis E wave0.69m/sMV Mean GR.mmHg A wave0.49m/sMV Peak GR.mmHg E/A ratio1.42D MVAcm2 DECEL [id number] 1/2 Timems Aortic Valve Aortic ValveAortic Stenosis V10.91m/Claudette Mean GR.3mmHg V21.03m/Claudette Peak GR.4mmHg LVOT Diameter1.9 (1.8-2.4cm)Doppler AVA2.50cm2 Pulmonic Valve V20.77m/s Conclusion lvef 55% normal RV function left atrium enlarged
[2025-01-02] MEDS ORDERED: cefTRIAXone 1GM/50ML D5W 50 ML IV ONE (16:30)
[2025-01-02] MEDS: cefTRIAXone 1GM/50ML D5W 50 ML IV ONE (23:58)
[2025-01-03 01:00] VITALS: BP 113/81; PULSE 79; RESP 18; TEMP 98.1; O2SAT 100
[2025-01-03 05:00] VITALS: BP 96/64; PULSE 66; RESP 17; TEMP 98.1; O2SAT 100
[2025-01-03 07:27] LABS: Hematocrit 30.3 % (41.0-53.0); Hemoglobin 10.3 g/dL (13.5-17.5); Mean Corpuscular Hemoglobin 28.5 pg (28.0-32.0); Mean Corpuscular Volume 83.7 fL (80.0-100.0); Nucleated Red Blood Cells % 0.1 %
[2025-01-03 07:40] LABS: Anion Gap 8 (5-15); Chloride 100 mmol/L (98-107); Potassium 4.2 mmol/L (3.5-5.1); Sodium 139 mmol/L (136-145)
[2025-01-03 07:41] LABS: Calcium 8.7 mg/dL (8.7-10.4)
[2025-01-03 07:42] LABS: Carbon Dioxide 31 mmol/L (20-31)
[2025-01-03 07:46] LABS: BUN/Creatinine Ratio 15.3 (10.0-20.0); Blood Urea Nitrogen 15 mg/dL (9-23); Glucose 106 mg/dL (74-106)
[2025-01-03 08:00] VITALS: BP 111/78; PULSE 70; RESP 16; TEMP 97.6; O2SAT 98
[2025-01-03] MEDS: cefTRIAXone 1GM/50ML D5W 50 ML IV SCH (10:08)
--- NOTE | 2025-01-03 10:12 | DVHPNRES ---
Progress Note Date Seen: Jan 03, 2025 Resident Creating Document: SHANTANU HERNANDEZ Medical Necessity Reason Pt with a Central, PICC or Fol: No Subjective Review of Systems Patient seen at bedside. Symptomatically better. Echo shows left ventricular ejection fraction of 55% and enlarged left atrium. Antibiotics changed from vancomycin and cefepime to ceftriaxone. Objective vital signs Vital Sign Date Time Temp Pulse Resp B/P (MAP) Pulse Ox O2 Delivery O2 Flow Rate FiO2 01/03/25 08:00 97.6 70 16 111/78 (89) 98 97.6 01/02/25 20:00 Room Air* 0 21 Total Intake and Output 01/02/25 01/02/25 01/03/25 15:00 23:00 07:00 Intake Total 50 ml 600 ml 800 ml Balance 50 ml 600 ml 800 ml medications Current Medications Medications Dose Ordered Sig/Maria De Jesus Route Start Time Stop Time Status Last Admin Dose Admin Acetaminophen 650 mg Q6HP PRN PO 12/29/24 21:45 Diagnostic Test (Pha) 1 strip ACHS 12/29/24 22:00 01/03/25 06:22 1 STRIP Dextrose 50 ml UD PRN IV 12/29/24 22:00 Insulin Human Lispro AC SC 12/30/24 17:00 01/02/25 18:09 2 UNITS Insulin Glargine 30 units DAILY@1000 SC 01/01/25 10:00 01/02/25 10:44 30 UNITS Ceftriaxone Sodium 50 ml @ 100 mls/hr DAILY@09 IV 01/03/25 09:00 Examination General Appearance: Alert, Oriented X3, Cooperative, No acute distress HEENT: Atraumatic, PERRLA, EOMI, Mucous membrane moist/pink Respiratory: Clear to auscultation, Normal air movement Cardiovascular: Regular rate, Normal S1, Normal S2, No murmurs, no chest wall tenderness Abdominal: Normal bowel sounds, Soft, No tenderness, No hepatospenomegaly, No masses Extremities: Crusted ulcers with surrounding erythema in bilateral knees, no tenderness, distal pulses palpated Skin: rashes Present Neuro: Normal gait, Normal speech, Strength at 5/5 X4 ext, Normal tone, Sensation intact, Cranial nerves 3-12 NL, Reflexes 2+ Psych/Mental Status: Mental status NL, Mood NL laboratory and microbiology Laboratory Tests 01/03/25 06:40 Test 01/03/25 06:40 Range/Units Serum Glucose 106 74-106 mg/dL Microbiology Date/Time Source Procedure Growth Status 01/01/25 18:34 Blood Blood Culture - Preliminary NO GROWTH AFTER 24 HOURS OF INCUBATION. Resulted 01/01/25 07:23 Knee Gram Stain - Final Resulted 01/01/25 07:23 Knee Wound Culture - Preliminary Resulted Problem List/Assessment/Plan Problem List/Assessment/Plan Cellulitis Gangrenous ulcer Ruled out osteomyelitis CT lower extremity showed subcutaneous edema with no fluid collections vancomycin and cefepime changed to ceftriaxone Bacteremia Blood culture grew Staphylococcus aureus Wound culture grew Staphylococcus and group B streptococci Wound consult Type 1 diabetes mellitus Normocytic anemia Plan discussed with: Patient Dietary Evaluation Review Comments: Nutrition recommendation 1) CCHO 60gm diet 2) Joshua 1 pk BID 3) Refer [employer] Or Surveys Interviewer for diabetes education Expected Outcomes/Goals: Wound to improve Fu 3-5 days Date of Service: Jan 03, 2025 Billing Provider: CHANTEL SCHAFER MD Common Visit Codes: [id number] INP/OBS CARE(HIGH) SHANTANU HERNANDEZ RESIDENT Jan 03, 2025 10:11 CHANTEL SCHAFER MD Jan 04, 2025 08:31
[2025-01-03 12:12] VITALS: BP 104/68; PULSE 74; RESP 16; TEMP 97.3; O2SAT 99
[2025-01-03 17:05] VITALS: BP 122/84; PULSE 85; RESP 18; TEMP 97.3; O2SAT 99
[2025-01-03 21:00] VITALS: BP 120/79; PULSE 72; RESP 17; TEMP 98; O2SAT 99
[2025-01-04 01:00] VITALS: BP 112/68; PULSE 71; RESP 17; TEMP 98.1; O2SAT 98
[2025-01-04 05:00] VITALS: BP 121/87; PULSE 72; RESP 18; TEMP 97.3; O2SAT 100
[2025-01-04 05:37] LABS: Hematocrit 30.7 % (41.0-53.0); Hemoglobin 10.3 g/dL (13.5-17.5); Mean Corpuscular Hemoglobin 28.0 pg (28.0-32.0); Mean Corpuscular Volume 83.7 fL (80.0-100.0); Nucleated Red Blood Cells % 0.0 %
[2025-01-04 05:45] LABS: Potassium 4.3 mmol/L (3.5-5.1); Sodium 136 mmol/L (136-145)
[2025-01-04 05:46] LABS: Anion Gap 8 (5-15)
[2025-01-04 05:47] LABS: Calcium 8.7 mg/dL (8.7-10.4); Carbon Dioxide 32 mmol/L (20-31); Chloride 96 mmol/L (98-107)
[2025-01-04 05:52] LABS: BUN/Creatinine Ratio 20.0 (10.0-20.0); Blood Urea Nitrogen 19 mg/dL (9-23)
[2025-01-04 05:54] LABS: Glucose 273 mg/dL (74-106)
[2025-01-04 08:58] VITALS: BP 96/62; PULSE 66; RESP 16; TEMP 98; O2SAT 99
[2025-01-04 13:00] VITALS: BP 106/75; PULSE 76; RESP 16; TEMP 98; O2SAT 99
--- NOTE | 2025-01-04 13:52 | DVHPNRES ---
Progress Note Date Seen: Jan 04, 2025 Resident Creating Document: KHADRA CORONEL RESIDENT Medical Necessity Reason Pt with a Central, PICC or Fol: No Subjective Review of Systems Brief history and review of system on admission: Shaun Barron is a 34-year-old with past medical history of type 1 diabetes mellitus presented to the ER with complain of of left knee swelling and ulcer. He stated that after coming back from fishing in [place] 1 week back, he noticed the skin peeled off while scrubbing in the shower. Few days later he started complaining of fever with associated chills and body pain. PMHx: Type 1 diabetes mellitus Family history: Insignificant Social history: Denies smoking alcohol recreational drugs Home medication: Insulin Allergic history: None ROS: General: Patient complains of chills patient denies fever, fatigue, weaknes, sweating, any recent changes in appetite and weight HEENT: No headaches, visiual changes, hearing loss, tinnitus, nasal congestion and discharge, and sore throat. Cardiovascular: Denies chest pain, palpitations, dyspnea on exertion, orthopnea, or claudication. Respiratory: No cough, and wheezing. Gastrointestinal: Denies nausea, vomiting, dysphagia, odynophagia, heartburn, abdominal pain, flatulence, bloating, diarrhea, constipation, change in stool, or blood in stool. Genitourinary: No dysuria, hematuria, discharge, frequency, urgency, nocturia, incontinence, and urinary retention. Endocrine: No heat or cold intolerance, polydipsia, polyuria, and polyphagia. Neurological: No dizziness, extremity weakness and numbness, tremors, gait disturbance, seizures, and memory impairment. Psychiatric: Denies depression, anxiety,or insomnia. Musculoskeletal: Patient denies pain in the site of ulcer or knee joint Denies neck pain, stiffness and swelling, back pain, muscle weakness, stiffness, swelling, or limited range of motion. Skin: No rashes, itching, skin lesion, changes in hair, nail, skin texture and breast. Hematologic/Lymphatic: Denies easy bruising, bleeding tendencies, or lymph node enlargement. 01/04/2025: He was examined at bedside today. He reports improvement in the ulcerative lesions on bilateral lower extremities. Yesterday, antibiotics switched from vancomycin, cefepime to ceftriaxone. He will continue IV ceftriaxone today, possible discharge on Keflex or Augmentin tomorrow. Objective vital signs Vital Sign Date Time Temp Pulse Resp B/P (MAP) Pulse Ox O2 Delivery O2 Flow Rate FiO2 01/04/25 08:58 98.0 66 16 96/62 (73) 99 98.0 01/04/25 08:00 Room Air* 0 21 Total Intake and Output 01/03/25 01/03/25 01/04/25 15:00 23:00 07:00 Intake Total 50 ml 700 ml 875 ml Output Total 200 ml Balance 50 ml 500 ml 875 ml medications Current Medications Medications Dose Ordered Sig/Maria De Jesus Route Start Time Stop Time Status Last Admin Dose Admin Acetaminophen 650 mg Q6HP PRN PO 12/29/24 21:45 Diagnostic Test (Pha) 1 strip ACHS 12/29/24 22:00 01/04/25 11:30 1 STRIP Dextrose 50 ml UD PRN IV 12/29/24 22:00 Insulin Human Lispro AC SC 12/30/24 17:00 01/04/25 06:11 2 UNITS Insulin Glargine 30 units DAILY@1000 SC 01/01/25 10:00 01/04/25 09:34 30 UNITS Ceftriaxone Sodium 50 ml @ 100 mls/hr DAILY@09 IV 01/03/25 09:00 01/04/25 09:07 100 MLS/HR Examination General Appearance: Alert, Oriented X3, Cooperative, No acute distress HEENT: Atraumatic, PERRLA, EOMI, Mucous membrane moist/pink Respiratory: Clear to auscultation, Normal air movement Cardiovascular: Regular rate, Normal S1, Normal S2, No murmurs, no chest wall tenderness Abdominal: Normal bowel sounds, Soft, No tenderness, No hepatospenomegaly, No masses Extremities: Multiple ulcerative lesions on bilateral lower extremities. Crusted ulcers with surrounding erythema in bilateral knees, dressing is dry, no tenderness, distal pulses palpated Neuro: Normal gait, Normal speech, Strength at 5/5 X4 ext, Normal tone, Sensation intact, Cranial nerves 3-12 NL, Reflexes 2+ Psych/Mental Status: Mental status NL, Mood NL laboratory and microbiology Laboratory Tests 01/04/25 04:46 Test 01/04/25 04:46 Range/Units Serum Glucose 273 #H 74-106 mg/dL Microbiology Date/Time Source Procedure Growth Status 01/01/25 18:34 Blood Blood Culture - Preliminary NO GROWTH AFTER 48 HOURS OF INCUBATION. Resulted 01/01/25 07:23 Knee Gram Stain - Final Resulted 01/01/25 07:23 Wound Culture - Preliminary Staphylococcus aureus Resulted Problem List/Assessment/Plan Problem List/Assessment/Plan Left knee Cellulitis Multiple Gangrenous ulcer ulcers on left knee Gangrenous ulcers on the right knee, leg Ruled out osteomyelitis CT lower extremity showed subcutaneous edema with no fluid collections Continue IV ceftriaxone Bacteremia Blood culture grew Staphylococcus aureus Wound culture grew Staphylococcus and group B streptococci Wound consult Type 1 diabetes mellitus Normocytic anemia History of cannabinoid use DIET: Consistent carbohydrate DVT PROPHYLAXIS: Ambulating CODE STATUS: Goals of care discussed with patient at bedside for more than 25 minutes. Full code DISPOSITION: Med/surge Patient's status and plan discussed with the patient. Case discussed with Dr. Ibarra Plan discussed with: Patient Dietary Evaluation Review Comments: Nutrition recommendation 1) CCHO 60gm diet 2) Joshua 1 pk BID 3) Refer Commissioner Of Conciliation for diabetes education Expected Outcomes/Goals: Wound to improve Fu 3-5 days Date of Service: Jan 04, 2025 Billing Provider: CHANTEL IBARRA MD Common Visit Codes: [id number] INP/OBS CARE(HIGH) KHADRA CORONEL RESIDENT Jan 04, 2025 13:52 CHANTEL IBARRA MD Jan 04, 2025 23:00
[2025-01-04 17:08] VITALS: BP 103/72; PULSE 70; RESP 16; TEMP 98.6; O2SAT 99
[2025-01-04 21:00] VITALS: BP 122/87; PULSE 76; RESP 16; TEMP 97.5; O2SAT 92
[2025-01-05 01:00] VITALS: BP 94/61; PULSE 59; RESP 16; TEMP 97.4; O2SAT 98
[2025-01-05 05:00] VITALS: BP 98/64; PULSE 55; RESP 16; TEMP 97.4; O2SAT 99
[2025-01-05 07:18] LABS: Hematocrit 31.8 % (41.0-53.0); Hemoglobin 10.6 g/dL (13.5-17.5); Mean Corpuscular Hemoglobin 28.0 pg (28.0-32.0); Mean Corpuscular Volume 84.0 fL (80.0-100.0); Nucleated Red Blood Cells % 0.1 %
[2025-01-05 07:32] LABS: Anion Gap 6 (5-15); Calcium 9.0 mg/dL (8.7-10.4); Chloride 101 mmol/L (98-107); Potassium 4.3 mmol/L (3.5-5.1); Sodium 140 mmol/L (136-145)
[2025-01-05 07:37] LABS: Carbon Dioxide 33 mmol/L (20-31)
[2025-01-05 07:38] LABS: BUN/Creatinine Ratio 23.7 (10.0-20.0); Blood Urea Nitrogen 23 mg/dL (9-23); Magnesium 2.3 mg/dL (1.6-2.6)
[2025-01-05 07:40] LABS: Glucose 111 mg/dL (74-106)
[2025-01-05 09:00] VITALS: BP 79/48; PULSE 60; RESP 16; TEMP 97.6; O2SAT 98
[2025-01-05] MEDS: INSULIN LANTUS (GLARGINE) 1 /0.01ml (100units/ml) SC SCH (10:00)
[2025-01-05 13:00] VITALS: BP 139/86; PULSE 81; RESP 16; TEMP 97.8; O2SAT 100
[2025-01-05] MEDS ORDERED: INSLANTI SC (13:15)
[2025-01-05] MEDS ORDERED: ACET-1882 PO (13:15)
[2025-01-05] MEDS ORDERED: ERGO1CAP23 PO (13:15)
[2025-01-05] MEDS ORDERED: CEPH250C PO (14:47)
[2025-01-05] MEDS: ERGOCALCIFEROL 50,000 UNIT(1.25MG) CAP PO SCH (15:13)
[2025-01-05 17:00] VITALS: BP 124/89; PULSE 79; RESP 15; TEMP 97.7; O2SAT 99
[2025-01-05 17:12] VITALS: TEMP 36.6
--- NOTE | 2025-01-05 19:24 | DVHDSRES ---
Discharge Summary Date of Admission Resident Creating Document: JOAQUÍN MCCORD RESIDENT Dec 29, 2024 at 21:45 Date of Discharge: Jan 05, 2025 Labs/Diagnostic Data: Laboratory Results Test 01/05/25 11:13 01/05/25 06:17 01/01/25 18:34 01/01/25 14:01 POC Glucose 252 mg/dl (70-106) White Blood Count 6.0 10^3/uL (4.4-10.8) Red Blood Count 3.79 10^6/uL (4.5-5.90) Hemoglobin 10.6 g/dL (13.5-17.5) Hematocrit 31.8 % (41.0-53.0) Mean Corpuscular Volume 84.0 fL (80.0-100.0) Mean Corpuscular Hemoglobin 28.0 pg (28.0-32.0) Mean Corpuscular Hemoglobin Concent 33.4 g/dL (32.0-36.0) Red Cell Distribution Width 14.4 % (11.8-14.3) Platelet Count 420 10^3/uL (140-450) Mean Platelet Volume 7.1 fL (6.9-10.8) Neutrophils (%) (Auto) 52.0 % (37.0-80.0) Lymphocytes (%) (Auto) 33.5 % (10.0-50.0) Monocytes (%) (Auto) 9.3 % (0.0-12.0) Eosinophils (%) (Auto) 4.4 % (0.0-7.0) Basophils (%) (Auto) 0.8 % (0.0-2.0) Neutrophils # (Auto) 3.1 10 ^3/uL (1.6-8.6) Lymphocytes # (Auto) 2.0 10 ^3/uL (0.4-5.4) Monocytes # (Auto) 0.6 10 ^3/uL (0-1.3) Eosinophils # (Auto) 0.3 10 ^3/uL (0-0.8) Basophils # (Auto) 0 10 ^3/uL (0-0.2) Nucleated Red Blood Cells 0.1 % Sodium Level 140 mmol/L (136-145) Potassium Level 4.3 mmol/L (3.5-5.1) Chloride Level 101 mmol/L (98-107) Carbon Dioxide Level 33 mmol/L (20-31) Anion Gap 6 (5-15) Blood Urea Nitrogen 23 mg/dL (9-23) Creatinine 0.97 mg/dL (0.700-1.30) Glomerular Filtration Rate Calc 106 mL/min (>90) BUN/Creatinine Ratio 23.7 (10.0-20.0) Serum Glucose 111 mg/dL (74-106) Calcium Level 9.0 mg/dL (8.7-10.4) Phosphorus Level 3.6 mg/dL (2.4-5.1) Magnesium Level 2.3 mg/dL (1.6-2.6) Vitamin B12 Level 485 pg/mL (211-911) Vitamin D 25-Hydroxy 15.6 ng/mL (30.0-100) Thyroid Stimulating Hormone (TSH) 0.79 uIU/mL (0.55-4.78) HIV (1&2) Antibody Negative (Negative) Random Vancomycin Level 13.1 ug/mL (5-10) Test 01/01/25 05:50 12/30/24 09:44 12/30/24 03:24 12/29/24 23:08 Erythrocyte Sedimentation Rate 86 mm/hr (0-20) Total Bilirubin 0.3 mg/dL (0.2-1.0) Aspartate Amino Transferase (AST) 19 U/L (13-40) Alanine Aminotransferase (ALT) 17 U/L (7-40) Alkaline Phosphatase 110 U/L (46-116) C-Reactive Protein High Sensitivity 11.56 mg/dL (<1.0) Total Protein 6.3 g/dL (5.7-8.2) Albumin 3.5 g/dL (3.2-4.8) Urine Color Light-yellow (Yellow) Urine Clarity Clear (Clear) Urine pH 5.5 (5.0-9.0) Urine Specific [place] 1.013 (1.001-1.035) Urine Protein Trace (Negative) Urine Ketones Negative (Negative) Urine Blood Negative /uL (Negative) Urine Nitrite Negative (Negative) Urine Bilirubin Negative (Negative) Urine Urobilinogen Normal mg/dL (Negative) Urine Leukocyte Esterase Negative /uL (Negative) Urine RBC 2 /hpf (0 - 3) Urine Microscopic WBC 1 /HPF (0-3) Urine Squamous Epithelial Cells None seen /hpf (<5) Urine Bacteria None seen /hpf (None Seen) Urine Hyaline Casts Few /lpf (0 - 2) Urine Mucus Few (None Seen) Urine Glucose 4+ mg/dL (Normal) Urine Opiates Screen Neg (NEGATIVE) Urine Fentanyl Screen Neg (NEGATIVE) Urine Barbiturates Screen Neg (NEGATIVE) Urine Phencyclidine Screen Neg (NEGATIVE) Urine Amphetamines Screen Neg (NEGATIVE) Urine Benzodiazepines Screen Neg (NEGATIVE) Urine Cocaine Screen Neg (NEGATIVE) Urine Cannabinoids Screen Pos (NEGATIVE) Hepatitis B Surface Antigen Negative (Negative) Hepatitis C Antibody Negative (Negative) Lactic Acid Level 1.5 mmol/L (0.4-2.0) Test 12/29/24 20:00 Hemoglobin A1c 14.0 % A1C (<5.7) Triglycerides Level 93 mg/dL (< 150) Cholesterol Level 106 mg/dL (< 200) LDL Cholesterol 48 mg/dL (< 100) HDL Cholesterol 44 mg/dL (40-59) Beta-Hydroxybutyric Acid mmol/L (< 0.4) Other Laboratory Tests 01/05/25 06:17 Brief Hx & Hospital Course: This is a 34-year-old male with past medical history of type 1 diabetes mellitus who presented to the ED with chief complaint of left knee wound just above the kneecap. The patient states that he went fishing one week ago and got bilateral sun burn on bilateral knees. Patient reports that after he went home and while taking a bath he was washing his knees with soap and incidentally peeled up the skin in the left knee. Days later, patient developed an ulcer with a crusted wound but was not causing significant pain at that time. Patient also reports wounds on right knee secondary to sunburn as well but less severe compared to the left. Patient reports that four days ago started developing fever, chills, body aches, erythema surrounding the left crusted ulcer associated with the edema and left lower extremity tightness. Initial labs showed a WBC of 13.4, BUN 19 and creatinine 1.76. Blood glucose was significantly elevated at 486. Upon my examination, there is a crusted ulcer/wound in the left lower extremity 2 cm above and laterally to the left kneecap. There is significant erythema surrounding the ulcer associated with the edema, inflammation and left lower extremity tightness. There is no significant tenderness to palpation. We will start the patient on IV fluids 1-2 L bolus, maintenance fluid, IV antibiotics. We will order a CT of the left lower extremity to rule out any abscess or muscle involvement. We will admit the patient for further assessment and management. Past Medical history: type 1 diabetes mellitus Home medications: Lantus 12 units, and Humalog 4 units before breakfast, 4 units before lunch and 10 units before dinner Surgical history: Denies Social history: Denies alcohol intake, drug intake or smoking Endocrine: Diabetes Past Surgical History: None Family History: None Smoke: No ALCOHOL: none Drugs: None Lives: with Family Domestic Violence: Neg Hospital course: Cellulitis of lower limb associated with bacteremia to MSSA, completing CT left knee shows narrowing of the medial compartment of the left knee as well as patellofemoral joint consistent with arthritic changes. Subcutaneous edema anterior laterally in the left lower extremity with no drainable fluid collections. If draining fluid is of clinical focus recommend ultrasound in the area of the patella. Completed transthoracic echocardiogram which did not show vegetations, dermal LVEF. Lab work shows ESR 86, no leukocytosis. lactic acidosis which resolved. HbA1c 14.0. patient started with Lantus 30 units bedtime then adjusted 20 units bedtime during discharge.Wound culture on 12/30/2024: Group B Streptococcus and Staphylococcus aureus and blood cultures on 12/29/2024 shows growth of Staphylococcus aureus and repeat blood culture on 01/01/25 no growth. 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 daily for 7. Patient currently stable denies any acute symptoms. patient able to ambulate and able to active movement his post knee without any difficulty. denies any fever, SOB, chest pain, headache, or any acute distress. PHYSICAL EXAMINATION (PE): General Appearance: Alert, Oriented X3, Cooperative, No acute distress HEENT: Atraumatic, PERRLA, EOMI, Mucous membr. moist/pink Respiratory: Clear to auscultation, Normal air movement Cardiovascular: Regular rate, Normal S1, Normal S2, No murmurs Abdominal: Normal bowel sounds, Soft, No tenderness, No hepatospenomegaly, No masses Extremities: BILATERAL KNEE COVERED WITH DRY BANDAGE, erythematous ulcers with no drainage at this point. Skin: No rashes, No breakdown, No significant lesion Neuro: Normal gait, Normal speech, Strength at 5/5 X4 ext, Normal tone, Sensation intact, Cranial nerves 3-12 NL, Reflexes 2+ Psych/Mental Status: Mental status NL, Mood NL DIAGNOSIS Left lower extremity cellulitis above and laterally to the left kneecap Left lower extremity diabetic wound Sepsis likely due to above Bacteremia to MSSA Uncontrolled type 1 diabetes mellitus with severe hyperglycemia CALEB likely due to vasomotor nephropathy Cellulitis Gangrenous ulcer Ruled out osteomyelitis and endocarditis CT lower extremity showed subcutaneous edema with no fluid collections Goals of care discussed with patient for over 18 minutes: Full code status Discussed plan with Dr. Malik, nurses and patients. Cosigning senior Resident: Lorena Smith, agree with discharge summary Operations or Procedures INDICATION: R/O ABSCESS OR MUSCLE INVOLVEMENT (CELLULITIS LT LOWER EXT) COMPARISON: None TECHNIQUE: CT of the right was performed without contrast. Volume transverse images were obtained and reconstructed in multiple planes using bone and soft tissue algorithms. CONTRAST: None Radiation Dose Information: CT Dose: CTDI volume is 7.75 mGy. Dose-length product is 2.47 mGy*cm FINDINGS: The alignment is normal. Narrowing of the medial compartment of the left knee There is no fracture, dislocation, or focal osseous lesions. Narrowing of the patellofemoral joint. Subcutaneous edema noted anterolaterally on the left lower extremity, no drainable fluid collection IMPRESSION: 1. Narrowing of the medial compartment of the left knee as well as patellofemoral joint consistent with arthritic changes. 2. Subcutaneous edema anterior laterally in the left lower extremity with no drainable fluid collections. If draining fluid is of clinical focus recommend ultrasound in the area of the patella. 3. Infection is a clinical concern consider MRI for excluding osteomyelitis. All CT scans at this medical facility are performed using dose modulation techniques as appropriate to a performed exam including the following: Automated exposure control was utilized; adjustment of the MA and/or KV according to patient size; and use of iterative reconstruction technique. ATED BY: DEDE CARPENTER Jr. DO DICTATED DATE/TIME: 12/29/24 893 EXAM: Two-dimensional and M-mode echocardiogram with Doppler and color Doppler. Blood Pressure: 100/63 mmHg INDICATION r/o structural disease RISK FACTORS Height: 5'3", Weight: 127 DIMENSIONS LVDd 4.4 (3.8-5.7cm) LA (2D) 3.4 (1.9-4.0cm) Aortic Root 3.0 (2.0- 3.7cm) LVDs 3.2 (2.5-4.0cm) LA (MM) (1.9-4.0cm) Aortic Cusp Exc 1.7 (1.5- 2.0cm) EF (%) 53.0 (55-70%) Rt. Atrium 3.7 (1.9-4.0cm) Asc. Aorta 2.9 cm IVSd 0.7 (0.7-1.1cm) RV (D) 3.6 (1.8-2.4cm) PWd 0.9 (0.7-1.1cm) Mitral Valve Mitral Mitral Stenosis E wave 0.69m/s MV Mean GR. mmHg A wave 0.49m/s MV Peak GR. mmHg E/A ratio 1.4 2D MVA cm2 DECEL Time 157ms PRESS 1/2 Time ms Aortic Valve Aortic Valve Aortic Stenosis V1 0.91m/s AO Mean GR. 3mmHg V2 1.03m/s AO Peak GR. 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 Medications: Keflex 250 mg PO qid for 14 days Lantus 20 U subcutaneousl daily Vitamin-D 81606 unit PO weekly Scheduled Cephalexin (Keflex Capsule), 1 CAP PO QID Ergocalciferol (Vitamin D 56785 Unit), 50,000 UNIT PO QWEEKLY Gabapentin (Gabapentin), 200 MG PO BID Insulin Glargine (Lantus), 20 UNITS SC DAILY@1000 Scheduled PRN Acetaminophen (Acetaminophen), 650 MG PO Q6HP PRN Miscellaneous Medications Artificial Tear Solution (Artificial Tears), 1 DROP EACHEYE, (Reported) Discontinued Medications Acyclovir (Acyclovir), 400 MG PO BID, (Reported) Insulin Glargine (Lantus), 12 UNIT SC HS, (Reported) Insulin Glargine-Yfgn (Insulin Glargine), 15 UNIT SC, (Reported) [Humulog], (Reported) Discharge Statement: "Patient was advised to return to the ER or call 911 if any headaches, dizziness, shortness of breath, chest pain, abdominal pain, bleeding, fevers, or worsening of medical condition. Patient was counseled about treatment plan, medications, possible side effects, patientverbalized understanding. All questions were answered to the best of my ability. This discharge took greater then 30 minutes in planning, reviewing documentation, counseling the patient, and discussing with other team members." ASSESSMENT ASSESSMENT Assessment Cellulitis of lower limb with bacteremia to MSSA JOAQUÍN MCCORD RESIDENT Jan 05, 2025 19:24 LORENA SMITH RESIDENT Jan 06, 2025 06:19
== END 2025-01-05 18:30 | disposition home health service (06) | DRG 871 ==
LOC: ER 19:42 → OVERFLOW 21:45 → CENTRAL 12-30 16:19
PROVIDERS: ADMIT Student in an Organized Health Care Education/Training Program; ATTEND Student in an Organized Health Care Education/Training Program
DX: A41.01 Sepsis due to Methicillin susceptible Staphylococcus aureus (principal); N17.0 Acute kidney failure with tubular necrosis; E11.52 Type 2 diabetes mellitus with diabetic peripheral angiopathy with gangrene; L03.116 Cellulitis of left lower limb; L97.929 Non-pressure chronic ulcer of unspecified part of left lower leg with unspecified severity; L97.919 Non-pressure chronic ulcer of unspecified part of right lower leg with unspecified severity; I96 Gangrene, not elsewhere classified; E11.65 Type 2 diabetes mellitus with hyperglycemia; D64.9 Anemia, unspecified; Z79.899 Other long term (current) drug therapy; Z79.4 Long term (current) use of insulin
CPT/HCPCS: 36415; 73700; 80048; 80053; 80061; 80202; 80307; 81001; 82010; 82306; 82565; 82607; 82962; 83036; 83605; 83735; 84100; 84443; 85025; 85652; 86141; 86703; 86803; 87040; 87077; 87081; 87186; 87205; 87340; 93306; 96360; 96361; 99291; G0378; J0692; J1815; J2543